=== PATIENT | female | born 1955 | race Caucasian/White ===

== ENCOUNTER 2017-05-09 15:20 | Emergency (ER) | payer MEDICARE, SELFPAY ==
[2017-05-09 15:58] LABS: #Basophils 0.1 thou/uL (0.0-0.2); #Eosinphils 0.3 thou/uL (0.0-0.7); #Lymphocytes 1.5 thou/uL (1.20-3.40); #Monocytes 1.5 thou/uL (0.11-0.59); #Neutrophils 6.7 thou/uL (1.40-6.50); %Basophils 0.6 % (0.0-1.0); %Eosinophils 2.9 % (0.0-10.0); %Lymphocytes 14.7 % (21.0-51.0); %Monocytes 14.5 % (0.0-10.0); %Neutrophils 67.2 % (42.0-75.0); Hemoglobin 11.6 g/dL (12.0-16.0); Mean Corpuscular HGB CONC 32.4 g/dL (32.0-36.0); Mean Corpuscular Volume 95.5 fl (81.0-99.0); Mean Platelet Volume 7.2 fL (7.4-10.4); Platelet Count 316 thou/uL (130-400); RBC Distribution Width 12.1 % (11.5-14.5); Red Blood Cell (RBC) Count 3.76 mill/uL (4.20-5.40)
[2017-05-09 16:28] LABS: ALT (SGPT) 24 U/L (8-55); AST (SGOT) 19 U/L (5-34); Alkaline Phosphatase 88 U/L (40-150); Anion Gap 11 mmol/L (10-20); BUN (Urea Nitrogen) 19 mg/dL (9.8-20.1); Bilirubin, Total 0.4 mg/dL (0.2-1.2); Calc. Creatinine Clearance 0 mL/min (70-130); Calcium 9.2 mg/dL (7.8-10.44); Carbon Dioxide 28 mmol/L (22-29); Chloride 102 mmol/L (98-107); Estimated GFR-MDRD 63; Globulin 3.4 g/dL (2.4-3.5); Glucose 105 mg/dL (70-105); Potassium 4.2 mmol/L (3.5-5.1); Protein, Total 7.4 g/dL (6.0-8.3); Sodium 137 mmol/L (136-145)
--- NOTE | 2017-05-09 16:56 | RAD ---
PA AND LATERAL CHEST: 05/09/17 HISTORY: Shortness of breath and cough. COMPARISON: 09/03/11 study. The heart size is within normal limits. There is a left mid lung field infiltrate probably within the superior segment of the left lower lobe. Underlying mass is not totally excluded. For this reason, f ollowup to resolution would be recommended. IMPRESSION: Left mid lung field pneumonic infiltrate. POS: [facility]
[2017-05-09] MEDS ORDERED: Azithromycin 250 MG TAB ONE (18:26)
[2017-05-09] MEDS ORDERED: cefTRIAXone\\ROCEPHIN 2 GM in Sodium Chloride 0.9% 100 ML IVPB SCH (18:30)
[2017-05-09] MEDS ORDERED: Acetaminophen 500 MG TAB ONE (18:35)
[2017-05-09 18:36] LABS: CKMB 2.2 ng/mL (0-6.6); Troponin I Less than 0.010 ng/mL (< 0.028)
--- NOTE | 2017-06-06 17:33 | EKG ---
Test Reason : SOB/CONGESTION Blood Pressure : / mmHG Vent. Rate : 087 BPM Atrial Rate : 087 BPM P-R Int : 174 ms QRS Dur : 084 ms QT Int : 378 ms P-R-T Axes : 049 041 043 degrees QTc Int : 454 ms Normal sinus rhythm Normal ECG Confirmed by MEEK SAUCEDO, LYRIC ([id number]), marketing editor NDAIA CEJA ([id number]) on 06/06/2017 5:33:10 PM Referred By: Confirmed By:LYRIC EDEN MD
== END 2017-05-09 20:44 | disposition home or self-care (01) ==
LOC: ERS 15:20
DX: J18.9 Pneumonia, unspecified organism (principal); E78.5 Hyperlipidemia, unspecified; I10 Essential (primary) hypertension; M19.90 Unspecified osteoarthritis, unspecified site; F32.9 Major depressive disorder, single episode, unspecified
CPT/HCPCS: 36415; 71046; 80053; 82550; 82553; 84484; 85025; 87040; 87149; 93005; 94640; 96361; 96365; J0696; J7050; J7620

== ENCOUNTER 2017-05-13 11:30 | Emergency (ER) | payer MEDICARE ==
[2017-05-13 12:08] LABS: #Basophils 0.1 thou/uL (0.0-0.2); #Eosinphils 0.4 thou/uL (0.0-0.7); #Lymphocytes 1.2 thou/uL (1.20-3.40); #Monocytes 0.7 thou/uL (0.11-0.59); #Neutrophils 6.8 thou/uL (1.40-6.50); %Basophils 0.6 % (0.0-1.0); %Eosinophils 3.9 % (0.0-10.0); %Lymphocytes 13.2 % (21.0-51.0); %Monocytes 7.3 % (0.0-10.0); Hemoglobin 10.7 g/dL (12.0-16.0); Mean Corpuscular HGB CONC 31.7 g/dL (32.0-36.0); Mean Corpuscular Volume 94.6 fl (81.0-99.0); Mean Platelet Volume 6.7 fL (7.4-10.4); Platelet Count 421 thou/uL (130-400); RBC Distribution Width 12.3 % (11.5-14.5); Red Blood Cell (RBC) Count 3.58 mill/uL (4.20-5.40); White Blood Cell (WBC) Count 9.1 thou/uL (4.8-10.8)
[2017-05-13 12:28] LABS: ALT (SGPT) 28 U/L (8-55); AST (SGOT) 20 U/L (5-34); Albumin 3.6 g/dL (3.5-5.0); Alkaline Phosphatase 103 U/L (40-150); Anion Gap 12 mmol/L (10-20); BUN (Urea Nitrogen) 15 mg/dL (9.8-20.1); Bilirubin, Total 0.2 mg/dL (0.2-1.2); Calc. Creatinine Clearance 0 mL/min (70-130); Calcium 9.6 mg/dL (7.8-10.44); Carbon Dioxide 27 mmol/L (22-29); Chloride 103 mmol/L (98-107); Estimated GFR-MDRD 66; Globulin 3.4 g/dL (2.4-3.5); Glucose 164 mg/dL (70-105); Sodium 138 mmol/L (136-145)
== END 2017-05-13 12:31 | disposition home or self-care (01) ==
LOC: ERS 11:30
DX: J18.9 Pneumonia, unspecified organism (principal); E78.5 Hyperlipidemia, unspecified; F32.9 Major depressive disorder, single episode, unspecified; I10 Essential (primary) hypertension; M19.90 Unspecified osteoarthritis, unspecified site
CPT/HCPCS: 36415; 80053; 85025; 99283

== ENCOUNTER 2017-10-02 10:08 | Outpatient (CLI) | payer MEDICARE ==
--- NOTE | 2017-10-02 11:49 | CT ---
CT CHEST NONCONTRAST PULMONARY LUNG SCAN LOW DOSE: History: Tobacco abuse. FINDINGS: Lungs are hyperinflated. Multinodular infiltrate with masses measuring up to 1.2 cm are present withi n the left lower lobe. Bulky mass like adenopathy of the mediastinum measures up to 4.8 cm oblique di ameter at the subcarinal level and 5.7 cm at the prevascular level. Lack of contrast limits evaluatio n and detail of the mediastinum. There is narrowing of the left lung bronchi and a right mainstem bro nchus due to adenopathy. Enlarged axillary lymph nodes measure up to 2.4 cm on the left. Inferior most images show subtle areas of decreased density within the liver, worrisome for hepatic m asses. IMPRESSION: 1. Extensive bulky and mediastinal adenopathy with bilateral axillary adenopathy and left lower lobe lung masses. Lung RADS category 4B. Suspicious. 2. Probable liver masses. 3. Please consider dedicated CT chest, abdomen, and pelvis with contrast for better delineation and e valuation of abdominal/pelvic abnormalities. Findings were called to Dr. Sanders at 1130 hours. Code CR POS: [facility]
== END 2017-10-02 10:09 | disposition home or self-care (01) ==
LOC: CT 10:08
PROVIDERS: ATTEND Family Medicine
DX: F17.211 Nicotine dependence, cigarettes, in remission (principal); R59.0 Localized enlarged lymph nodes; R16.0 Hepatomegaly, not elsewhere classified
CPT/HCPCS: G0297

== ENCOUNTER 2017-11-21 13:35 | Emergency (ER) | payer MEDICARE ==
[2017-11-21] MEDS ORDERED: ISOVUE-370 76%-LOCM 1 ML ONE (13:42)
[2017-11-21] MEDS ORDERED: Ondansetron ODT 4 MG TAB ONE (14:13)
[2017-11-21] MEDS ORDERED: Methocarbamol 1 GM in Sodium Chloride 0.9% 100 ML IVPB SCH (14:30)
[2017-11-21 14:39] LABS: #Eosinphils 0.1 thou/uL (0.0-0.7); #Lymphocytes 0.9 thou/uL (1.20-3.40); #Monocytes 0.7 thou/uL (0.11-0.59); #Neutrophils 5.7 thou/uL (1.40-6.50); %Basophils 0.4 % (0.0-1.0); %Eosinophils 0.9 % (0.0-10.0); %Monocytes 9.9 % (0.0-10.0); %Neutrophils 76.8 % (42.0-75.0); Hemoglobin 10.4 g/dL (12.0-16.0); Mean Corpuscular HGB CONC 33.6 g/dL (32.0-36.0); Mean Corpuscular Hemoglobin 28.9 pg (27.0-31.0); Mean Corpuscular Volume 86.1 fL (78.0-98.0); Platelet Count 284 thou/uL (130-400); RBC Distribution Width 13.2 % (11.5-14.5); White Blood Cell (WBC) Count 7.5 thou/uL (4.8-10.8)
[2017-11-21 14:59] LABS: ALT (SGPT) 34 U/L (8-55); AST (SGOT) 60 U/L (5-34); Albumin 4.4 g/dL (3.4-4.8); Alkaline Phosphatase 192 U/L (40-150); Anion Gap 16 mmol/L (10-20); BUN (Urea Nitrogen) 34 mg/dL (9.8-20.1); Bilirubin, Total 0.4 mg/dL (0.2-1.2); Calc. Creatinine Clearance 0 mL/min (70-130); Calcium 10.2 mg/dL (7.8-10.44); Carbon Dioxide 24 mmol/L (23-31); Chloride 101 mmol/L (98-107); Estimated GFR-MDRD 43; Globulin 4.6 g/dL (2.4-3.5); Glucose 114 mg/dL (80-115); Potassium 4.4 mmol/L (3.5-5.1); Sodium 137 mmol/L (136-145)
[2017-11-21 15:04] LABS: CKMB 1.7 ng/mL (0-6.6); Troponin I Less than 0.010 ng/mL (< 0.028)
--- NOTE | 2017-11-21 15:55 | CT ---
CT PULMONARY ANGIO OF CHEST WITH CONTRAST: 11/21/17 Multiple axial tomograms obtained through chest with IV enhancement following pulmonary angio protoco l with multiplanar reconstruction and 3D postprocessing. INDICATIONS: Cough. Back pain. History of malignancy. Correlation made to recent CT lung screening exam of 10/02/17 which revealed massive mediastinal adenop athy. FINDINGS: Current exam again shows massive mediastinal adenopathy. Large confluent adenopathy in the anterior m ediastinum surround the arch vessels. This bulky adenopathy encompasses the aortic arch. There is pro minent paratracheal, carinal and subcarinal adenopathy. The adenopathy compresses the left main pulmonary artery producing significant luminal narrowing of t he vessels to the left mid and lower lung. The left main descending pulmonary arteries show significa nt luminal compression. There is also compression of left upper lobe pulmonary artery. No definite pu lmonary embolus identified. The right main pulmonary artery is displaced due to posterior adenopathy displacing this artery anter iorly; however, no evidence of embolus identified. The lung ramirez are well aerated. There is a focal pleural based density consistent with pulmonary ma ss in the posterior mid left lung in a paravertebral location which measures approximately 2.9 cm bharat gth x 1.2 cm AP dimension. There are two small pulmonary nodules in the left lower lobe peripherally measuring in the 3 to 4 mm range. There is associated focus of pleural thickening at this location. There is a calcified nodule in the right lower lobe mid lung adjacent to the fissure. No significant effusion. No evidence of inflammatory infiltrate. Images through the upper abdomen show numerous low density lesions throughout the liver indicating di ffuse hepatic metastasis and evidence of upper abdominal adenopathy, incompletely evaluated. Review of the osseous structures reveals evidence of numerous old rib fractures. The osseous structur es show abnormal sclerosis and some abnormal mottled density in the vertebral bodies. Diffuse bony me tastasis cannot be excluded. IMPRESSION: 1. Massive mediastinal and hilar adenopathy. This adenopathy compresses and displaces both main pulmonary arteries with significant luminal narrowing in the left main pulmonary artery due to the dumont rrounding adenopathy. No definite pulmonary embolus identified. 2. There is a pleural based mass density in the mid left lung posteriorly at a paravertebral loc ation as described above and there are tiny nodules in the left lower lobe. 3. Images through the upper abdomen reveal numerous low density lesions in the liver indicating diffuse hepatic metastasis. There is also evidence of adenopathy in the upper abdomen which is incomp letely evaluated. POS: [facility]
--- NOTE | 2017-11-25 13:46 | EKG ---
Test Reason : Blood Pressure : / mmHG Vent. Rate : 092 BPM Atrial Rate : 092 BPM P-R Int : 186 ms QRS Dur : 086 ms QT Int : 350 ms P-R-T Axes : 076 043 051 degrees QTc Int : 432 ms Normal sinus rhythm Low voltage QRS Borderline ECG Confirmed by MEEK SAUCEDO, LYRIC ([id number]), development editor NADIA CEJA ([id number]) on 11/25/2017 1:45:29 PM Referred By: Confirmed By:LYRIC EDEN MD
== END 2017-11-21 16:53 | disposition home or self-care (01) ==
LOC: ERS 13:35
DX: M54.6 Pain in thoracic spine (principal); C78.00 Secondary malignant neoplasm of unspecified lung; C22.8 Malignant neoplasm of liver, primary, unspecified as to type; E78.5 Hyperlipidemia, unspecified; I10 Essential (primary) hypertension; M19.90 Unspecified osteoarthritis, unspecified site; F32.9 Major depressive disorder, single episode, unspecified; Z79.899 Other long term (current) drug therapy
CPT/HCPCS: 71275; 80053; 82553; 84484; 85025; 93005; 96365; 96375; J2270; J2800; J7050; Q0162

== ENCOUNTER 2017-11-22 13:47 | Emergency (ER) | payer MEDICARE ==
[2017-11-22] MEDS ORDERED: Ondansetron ODT 4 MG TAB ONE (15:06)
[2017-11-22] MEDS ORDERED: HYDROcodone/Acetaminophen 5/325 mg Tablet ONE (15:33)
== END 2017-11-22 16:20 | disposition home or self-care (01) ==
LOC: ERS 13:47
DX: M54.6 Pain in thoracic spine (principal); E78.5 Hyperlipidemia, unspecified; I10 Essential (primary) hypertension; F32.9 Major depressive disorder, single episode, unspecified; Z79.899 Other long term (current) drug therapy
CPT/HCPCS: J2270; Q0162

== ENCOUNTER 2017-11-22 21:27 | Emergency (ER) | payer MEDICARE ==
[2017-11-23] MEDS ORDERED: Ondansetron ODT 4 MG TAB ONE (00:18)
== END 2017-11-23 00:20 | disposition home or self-care (01) ==
LOC: ERS 21:27
DX: G89.29 Other chronic pain (principal); E78.5 Hyperlipidemia, unspecified; I10 Essential (primary) hypertension; M19.90 Unspecified osteoarthritis, unspecified site; F32.9 Major depressive disorder, single episode, unspecified; Z79.899 Other long term (current) drug therapy; Z79.891 Long term (current) use of opiate analgesic
CPT/HCPCS: 96372; 99283; J2270; Q0162

== ENCOUNTER 2017-11-23 10:12 | Emergency (ER) | payer MEDICARE ==
[2017-11-23] MEDS ORDERED: Ondansetron ODT 4 MG TAB ONE (12:26)
[2017-11-23] MEDS ORDERED: Acetaminophen 500 MG TAB ONE (12:26)
== END 2017-11-23 12:43 | disposition home or self-care (01) ==
LOC: ERS 10:12
DX: M54.6 Pain in thoracic spine (principal); E78.5 Hyperlipidemia, unspecified; I10 Essential (primary) hypertension; F32.9 Major depressive disorder, single episode, unspecified
CPT/HCPCS: Q0162

== ENCOUNTER 2017-11-23 22:38 | Emergency (ER) | payer MEDICARE ==
[2017-11-23] MEDS ORDERED: Acetaminophen 500 MG TAB ONE (23:55)
== END 2017-11-24 00:04 | disposition home or self-care (01) ==
LOC: ERS 22:38
DX: G89.29 Other chronic pain (principal); M54.6 Pain in thoracic spine; E78.5 Hyperlipidemia, unspecified; I10 Essential (primary) hypertension; F32.9 Major depressive disorder, single episode, unspecified; Z79.899 Other long term (current) drug therapy
CPT/HCPCS: 99283; Q0162

== ENCOUNTER 2017-12-09 12:45 | Inpatient (IN) | payer MEDICARE ==
[~2017-12-09 12:45] MED LIST: ISOVUE-370 76%-LOCM 1 ML ONE
[2017-12-09 13:20] LABS: #Eosinphils 0.1 thou/uL (0.0-0.7); #Lymphocytes 0.9 thou/uL (1.20-3.40); #Monocytes 0.8 thou/uL (0.11-0.59); #Neutrophils 7.2 thou/uL (1.40-6.50); %Basophils 0.4 % (0.0-1.0); %Eosinophils 1.4 % (0.0-10.0); %Lymphocytes 10.2 % (21.0-51.0); %Monocytes 8.7 % (0.0-10.0); %Neutrophils 79.3 % (42.0-75.0); Hemoglobin 11.7 g/dL (12.0-16.0); Mean Corpuscular HGB CONC 32.2 g/dL (32.0-36.0); Mean Corpuscular Volume 87.1 fL (78.0-98.0); Mean Platelet Volume 7.6 fL (7.4-10.4); Platelet Count 274 thou/uL (130-400); RBC Distribution Width 14.2 % (11.5-14.5); Red Blood Cell (RBC) Count 4.16 mill/uL (4.20-5.40); White Blood Cell (WBC) Count 9.1 thou/uL (4.8-10.8)
--- NOTE | 2017-12-09 13:26 | RAD ---
PORTABLE AP CHEST: Date: 12/09/17 HISTORY: Patient fell yesterday and now has bilateral rib pain/chest pain. COMPARISON: 05/09/17. FINDINGS: There is widening of the mediastinum with mass-like density in the left hilar and suprahilar location and the superior aspect of the aortic arch is not delineated. Patient was noted to have mediastinal and hilar masses on recent CTA of the chest on 11/21/17, which likely accounts for this finding. Ther e are a few remote anterior left-sided rib fractures noted. No definite acute rib fracture is appreci ated on this exam. There is no pneumothorax or pleural effusion seen. No other findings. IMPRESSION: 1. Widening of the mediastinum with mass-like density in the left hilar and suprahilar locations, li reji related to extensive masses/lymphadenopathy seen in the mediastinum and left hilar region on rec ent CTA chest on 11/21/17. 2. Remote anterior left-sided rib fractures. 3. No acute cardiopulmonary process. POS: [facility]
[2017-12-09 13:44] LABS: ALT (SGPT) 55 U/L (8-55); AST (SGOT) 90 U/L (5-34); Albumin 3.7 g/dL (3.4-4.8); Alkaline Phosphatase 313 U/L (40-150); Anion Gap 20 mmol/L (10-20); BUN (Urea Nitrogen) 19 mg/dL (9.8-20.1); Bilirubin, Total 0.7 mg/dL (0.2-1.2); Calc. Creatinine Clearance 0 mL/min (70-130); Calcium 9.1 mg/dL (7.8-10.44); Carbon Dioxide 17 mmol/L (23-31); Chloride 93 mmol/L (98-107); Estimated GFR-MDRD 63; Globulin 3.3 g/dL (2.4-3.5); Glucose 114 mg/dL (80-115); Sodium 126 mmol/L (136-145)
[2017-12-09 13:48] LABS: CKMB 3.2 ng/mL (0-6.6); Troponin I Less than 0.010 ng/mL (< 0.028)
[2017-12-09] MEDS ORDERED: Sodium Chloride 0.9% 1,000 ML IV SCH (16:40)
[2017-12-09] MEDS ORDERED: Acetaminophen 325 MG TAB PO PRN ×2 (16:40→19:07)
[2017-12-09] MEDS ORDERED: Ondansetron HCl/PF 4 MG/2 ML Vial IVP PRN ×2 (16:40→19:07)
[2017-12-09] MEDS ORDERED: Ondansetron ODT 4 MG TAB SL PRN (16:40)
[2017-12-09] MEDS ORDERED: Nystatin Cream 30 GM TUBE TOP PRN (17:01)
--- NOTE | 2017-12-09 17:10 | PDOC.EVN ---
Event Note - Event Note Event Note: Seen and examined. S/p fall but cannot tell me many of the events or where she fell. She is complaining of "pain all over" that has been going on for some time. Denies f/c/n/v. Denies numbness, tingling, weakness, but I was unable to complete an entire interview because she did not wish to proceed with further questions. NAD, resting in bed No icterus or injection RRR s m/g/r, her chest is TTP by my stethoscope diffusely CTAB s w/r/r Abd soft with some voluntary guarding and she yells no matter where I palpate, including areas away from the abdomen Scant pitting edema BLE CN II-XII intact and symmetric, no focal deficits Large mediastinal mass; multiple liver metastases on liver from previous scan A/P: Hyponatremia -normal 2 weeks ago -tsh, cortisol, urine lytes -s/p 500 ml bolus and would hold IVF as suspect SIADH -BMP q4h, more often if rapid rise, goal < 9 mEq/24h Pain -morphine PRN -I do not believe she has an acute abdomen currently, but will plan for serial abdominal exam Lung mass with likely metastases, elevated LFTs and alk phos -onc consulted, as well as palliative Anemia -monitor for stability DVT ppx with ICDs and possibly with lovenox pending above consultations
--- NOTE | 2017-12-09 17:24 | HP-2 ---
DATE OF SERVICE: 12/09/2017 CODE STATUS: FULL. PRIMARY CARE PHYSICIAN: Paco Sanders M.D. RESIDENT: Jose Carlos Bae M.D. ATTENDING PHYSICIAN: Milan Cunningham MD CONSULTATIONS: 1. Palliative Care. 2. Dr. Fajardo, Hematology/Oncology. CHIEF COMPLAINT: Rib pain. HISTORY OF PRESENT ILLNESS: Ms. Mills is a pleasant 62-year-old female with past medical history of carotid artery stenosis, hypertension, osteoarthritis, and a recently diagnosed presumed lung cancer. She presents to the ER via EMS with chief complaint of left-sided rib pain, back pain, arm pain , and abdominal pain. She states that she was walking at home yesterday and fell from standing, landing on her left side. She states she required assistance from EMS to stand back up and that her pain has been significantly worse throughout the past 24 hours. States that she has had more and more difficulty caring herself over the past 2-3 months. When asked regarding her lung cancer, she states that she is aware that she has a lung mass, but has been unable to follow up with Oncology due to financial restrictions. While en route with EMS, she received fentanyl 200 mcg and has been very tired and minimally responsive per nursing report. Her history and review of systems were limited by this. ER COURSE: While in the ER, the patient was seen and evaluated by Jacquelin Lizarraga PA-C. Routine labs were drawn and a chest x-ray was obtained. She was given a normal saline bolus of 500 mL PAST MEDICAL HISTORY: Past medical history was obtained from clinic records and is as follows: 1. Known lung cancer of unspecified type. 2. Hypertension. 3. Colon polyps. 4. History of tobacco abuse. 5. Osteoarthritis. 6. Hyperlipidemia. 7. Hypertension. 8. Fibromyalgia. 9. Depression. 10. Posttraumatic stress disorder. PAST SURGICAL HISTORY: 1. Left knee arthroscopy. 2. Hysterectomy. 3. Colonoscopy. ALLERGIES: The patient states she is allergic to ASPIRIN. MEDICATIONS: 1. Spiriva inhaler, inhale 1 capsule daily. 2. Lovastatin 40 mg daily. 3. Lyrica 1 tab by mouth t.i.d. 4. Nabumetone 750 mg b.i.d. 5. Flonase 1 spray each nostril twice daily. 6. Zoloft 200 mg daily. 7. Ranitidine 150 mg twice daily. 8. Lisinopril 5 mg daily. 9. Alendronate 70 mg by mouth weekly. 10. Bupropion HCL ER 150 mg daily. 11. Amitriptyline 70 mg at bedtime. 12. Tramadol 50 mg t.i.d. p.r.n. pain. SOCIAL HISTORY: The patient endorses extensive smoking history, but was unable to comment on how long. Per clinic records, she has a greater than 15-pack- year history. Denies alcohol or illicit drug use, is currently living at home, but is having difficulty performing ADLs and IADLs. REVIEW OF SYSTEMS: Review of systems is limited by patient's altered mentation from the pain medication. She did endorse abdominal pain, back pain, arm pain, and rib pain. She was unwilling to provide further review of systems. PHYSICAL EXAMINATION: VITAL SIGNS: Blood pressure 111/79, pulse 105, respiratory rate 16, temperature 98.7 oral, oxygen saturation 95% on room air, current weight 68 kilograms. GENERAL: A cachectic appearing, in moderate to severe pain, responds to verbal stimuli. Unable to assess orientation due to patient's altered mentation. HEENT: Normocephalic, atraumatic. PERRLA, EOMI. Conjunctivae within normal limits. External ears, nose grossly normal. Moist oral examination. Mouth reveals poor dentition, moist mucous membranes. NECK: Supple, without lymphadenopathy, thyromegaly. CARDIOVASCULAR: Tachycardic rate, regular rhythm, no murmurs, rubs or gallops. LUNGS: Clear to auscultation bilaterally. Normal effort. ABDOMEN: Mild distention with diffuse out of proportion tenderness. Normal bowel sounds. No rebound or guarding noted. EXTREMITIES: No clubbing, cyanosis or edema. MUSCULOSKELETAL: Moves all 4 limbs equally. Range of motion limited to pain. NEUROLOGIC: No gross focal deficits. Strength limited by pain in all major muscle groups. SKIN: Warm, dry, and intact without lesions. PSYCHIATRIC: Unable to assess due to pain medication. LABORATORY DATA: CBC: White blood cell count 9.1, hemoglobin 10.7, hematocrit 36.2, platelets 274, neutrophils 79.2. CMP: Sodium 129, potassium 4.0, chloride 93, bicarbonate 17, BUN 19, creatinine 0.91, GFR 63, glucose 114, calcium 9.1, total bilirubin 0.7, AST 90, ALT 55, alkaline phosphatase 313. Serum protein 7.0, albumin 3.7, globulin 3.3. Cardiac markers, CK-MB 3.2, troponin I less than 0.010. IMAGING: Chest x-ray reveals widening of the mediastinal mass-like density in the left hilar and suprahilar locations, likely related extensive masses/ lymphadenopathy seen in the left mediastinum and left hilar region on recent CTA chest on 11/21/2017. CTA chest on 11/21/2017 shows mass in mediastinal and hilar adenopathy. Significant luminal narrowing of the left main pulmonary artery due to surrounding adenopathy, pleural based mass density in the left lung posteriorly in paravertebral location. Images through upper abdomen revealed numerous low density lesions in the liver, indicating diffuse hepatic metastasis. EKG: Sinus rhythm with premature atrial contractions, ventricular rate 80, NJ interval 180, QTC interval 468. ASSESSMENT AND PLAN: Ms. Mills is a 62-year-old female with suspected metastatic lung disease. She presents after a fall with intractable rib, back, and arm pain. She was found to be hyponatremic down to 126, which is decreased from 137 on 11/21/2017. 1. Suspected syndrome of inappropriate antidiuretic hormone secretion due to metastatic lung cancer. Patient received a 500 mL bolus of normal saline in the ER. We will continue to trend basic metabolic panels q.4h x4. We will fluid restrict to 1200 mL fluid daily. We will consider consulting Nephrology if her hyponatremia worsens. We will also check a TSH and random cortisol level. 2. Suspected metastatic lung cancer. We will obtain a CT of the abdomen and pelvis with IV contrast to further evaluate suspected liver metastasis and search for other potential tumors. Hematology/Oncology have been consulted as has palliative care. We will provide [place] and for pain control with morphine 2 mg q.4h. p.r.n. for breakthrough pain. Tumor markers of an alpha fetoprotein CA-19/9, CEA and CA-125 have all been drawn. We will await further recommendations from, Hematology/Oncology. 3. Hypertension. We will resume home medications. 4. Depression. We will resume home medication. 5. Tobacco abuse, p.r.n. nicotine patch provided. 6. Prophylaxis, Lovenox. Patient is high risk for DVT given suspected metastatic disease. 7. Fall precautions. 8. Diet: Heart healthy, fluid restricted to 1200 mL of fluid daily. CODE STATUS: FULL. Code status was discussed with patient who expressed understanding. DISPOSITION AND ESTIMATED LENGTH OF STAY: She is admitted under inpatient status and placed on the oncology wing. Length of stay is likely greater than 2 midnights. History and physical exam and management of this patient were discussed with Dr. Jones who is in agreement unless otherwise stated in his addendum. [facility]
[2017-12-09] MEDS ORDERED: Acetaminophen 650 MG Suppository PR PRN (19:07)
[2017-12-09] MEDS ORDERED: Ondansetron ODT 4 MG TAB PO PRN (19:07)
[2017-12-09] MEDS ORDERED: Bisacodyl 5 MG TAB PO PRN (19:07)
[2017-12-09] MEDS ORDERED: Nicotine 14 MG PATCH TD PRN (19:07)
[2017-12-09] MEDS ORDERED: Bisacodyl 10 MG SUPP PR PRN (19:07)
[2017-12-09] MEDS ORDERED: HYDROcodone/Acetaminophen 10/325 mg Tablet PO PRN (19:07)
[2017-12-09] MEDS ORDERED: Sodium Chloride 0.9% 10 ML ONE (19:09)
[2017-12-09] MEDS ORDERED: Enoxaparin Sodium 40 MG/0.4 ML SYRINGE SC SCH (19:15)
[2017-12-09 19:38] VITALS: BMI 25.7
[2017-12-09 20:44] LABS: Anion Gap 16 mmol/L (10-20); BUN (Urea Nitrogen) 21 mg/dL (9.8-20.1); Calc. Creatinine Clearance 72 mL/min (70-130); Calcium 8.9 mg/dL (7.8-10.44); Carbon Dioxide 22 mmol/L (23-31); Chloride 92 mmol/L (98-107); Estimated GFR-MDRD 65; Glucose 98 mg/dL (80-115); Potassium 3.8 mmol/L (3.5-5.1); Sodium 126 mmol/L (136-145)
[2017-12-09 20:59] LABS: CEA, Serum 94.25 ng/mL (< or = 5.0); Thyroid Stimulating Hormone 3.6965 uIU/mL (0.35-4.94)
--- NOTE | 2017-12-09 21:00 | CT ---
CT OF THE CHEST WITH CONTRAST CT OF THE ABDOMEN AND PELVIS WITH CONTRAST 12/09/17 COMPARISON: 11/21/17. HISTORY: Lung mass and massive mediastinal adenopathy. TECHNIQUE: 1. Multiple contiguous axial images are obtained in a CT of the chest with contrast. Coronal ref ormats were performed. 2. Multiple contiguous axial images were obtained in a CT of the abdomen and pelvis with contras t. Coronal reformats were performed. FINDINGS: There is a lobulated low density soft tissue density mass involving the left hilar region. This encas es the pulmonary artery and bronchi to the left lower lobe. This is stable in size compared to the pr ior examination and becomes confluent with masses posterior mediastinal adenopathy. There are also en larged confluent lymph nodes in the superior and anterior mediastinum. These appear similar in size c ompared to the prior examination. There is a stable hypodense mass along the posterior pleura measuring approximately 3.0 cm in length. No new pulmonary masses are seen. No pleural effusion or pneumothorax are present. There is stable bilateral axillary adenopathy. The largest node is seen on the right measuring 2.8 cm in greatest dimension. The chest wall soft tissues and bones of the thorax are otherwise unremarkabl e. CT ABDOMEN/PELVIS: There are innumerable hypodensities scattered throughout the majority of the liver encompassing the m ajority of the liver parenchyma. The largest measures 7.3 cm in greatest dimension. When compared to the prior examination, the liver masses appear larger and more numerable than on the prior examinatio n. A small amount of free fluid in seen in the pelvis. No free air is identified. The gallbladder is contracted. The kidneys, adrenal glands, spleen, and pancreas are unremarkable. Scattered diverticula are seen in the colon. The small bowel is normal in caliber. The appendix is un remarkable. No abdominal or pelvic adenopathy is seen. No enlarged inguinal lymph nodes are present. The patient is status post hysterectomy. There is a small fat containing umbilical hernia. Degenerative changes are seen in the spine. There i s a slightly mottled appearance to some of the vertebral bodies which most likely represents degenera tive change. Osseous metastases cannot be entirely excluded. This is unchanged compared to the prior examination. IMPRESSION: 1. Stable peripheral left lung mass. 2. Massive hilar and mediastinal adenopathy is grossly stable compared to the prior examination. 3. Stable bilateral axillary adenopathy. 4. Scattered hypodensities throughout the liver appear to have progressed and likely represent m etastatic disease. 5. Diverticulosis. 6. Stable sclerotic appearance to some of the vertebral bodies may represent degenerative change . Osseous metastases cannot be entirely excluded. POS: [facility]
--- NOTE | 2017-12-09 21:59 | CON ---
DATE OF CONSULTATION: 12/09/2017 REASON FOR CONSULTATION: Lung mass and mediastinal lymphadenopathy. HISTORY OF PRESENT ILLNESS: A 62-year-old female with known lung mass with massive mediastinal lymphadenopathy and liver lesions seen on previous CAT scans presents with a fall and pain. On exam, the patient is noncooperative and minimally verbal. She states she has pain all over. She says she was told she had a lung mass, but says she was never able to get this evaluated as she could not afford it. She is not able to give me any other history. Patient was not responsive to other questions and did not want to proceed any further with the interview. REVIEW OF SYSTEMS: Unable to obtain secondary to patient's status and refusal. PAST MEDICAL HISTORY: Unable to obtain. FAMILY HISTORY: Unable to obtain. SOCIAL HISTORY: Unable to obtain. MEDICATIONS: Reviewed. PHYSICAL EXAMINATION: GENERAL: The patient is lying in bed, very uncomfortable appearing and moaning in pain. CARDIOVASCULAR: Regular rhythm and rate with some mild tenderness to palpation upon touching anywhere on her chest. RESPIRATORY: Clear to auscultation bilaterally without wheezes, rales or rhonchi. ABDOMEN: Soft and nondistended. EXTREMITIES: No edema. NEUROLOGIC: No gross abnormal findings; however, not able to perform full exam once patient not cooperative for lymph node exam. LABORATORY DATA: White blood cells 9.1, hemoglobin 11.7, hematocrit 36.2, platelets 274. Sodium 126. AST 90, ALT 55, alkaline phosphatase 313, albumin 3.7. IMAGING DATA: CT angio of chest with and without contrast dated 11/21/2017, massive mediastinal adenopathy. Large confluent adenopathy in the anterior mediastinum surrounding the arch vessels. This bulky adenopathy encompasses the aortic arch. There is prominent paratracheal coronal and subcarinal adenopathy. The adenopathy compresses the left main pulmonary artery, producing significant luminal narrowing of the vessels to the left mid and lower lung. The left main descending pulmonary artery shows significant luminal compression. There is also compression of left upper lobe pulmonary artery. Right main pulmonary artery is displaced due to posterior adenopathy displacing this artery anteriorly. There is a focal pleural based density consistent with pulmonary mass in the posterior mid left lung in a paravertebral location, which measures 2.9 cm x 1.2 cm in AP dimension. There were 2 small pulmonary nodules in the left lower lobe peripherally measuring 3- 4 mm in size with associated pleural thickening at that location. Images through the upper abdomen showed numerous low density lesions throughout the liver, indicating diffuse hepatic metastases, and evidence of upper abdominal adenopathy and completely evaluated. Review of osseous structures reveals evidence of numerous old rib fractures. The osseous structures showed normal sclerosis and some abnormal mottled density into the vertebral bodies. Diffuse bony metastasis cannot be excluded. ASSESSMENT AND PLAN: A 62-year-old female with lung mass, massive mediastinal lymphadenopathy, diffuse liver lesions, and possible bone mets presenting with severe pain after a fall. History is limited by the patient's condition. The patient has known history of lymphadenopathy and lung mass first seen in 09/[address] scan; however, the patient did not follow up to have this evaluated. This was again seen on 11/21/[address] angio of the chest and again the patient did not follow up. Unable to get any other history from the patient. Patient also has hyponatremia with sodium of 126. Sodium was 137 on 11/21/2017, so this is a new finding. Given burden of disease on imaging and hyponatremia, this is concerning for a small cell lung cancer and SIADH that is the cause of her hyponatremia. The patient does require biopsy of tissue for definitive diagnosis; however. We will get a CT scan of the chest , abdomen, and pelvis as she has never had an abdomen and pelvis CT and her CT of the chest is 3 weeks old and small cell can grow very rapidly and she may have much higher burden of disease than previously thought. We will then decide if she should have a biopsy via IR or through a bronchoscopy. If this does pillowcase turner to be small cell lung cancer, she may benefit from inpatient chemotherapy. Thank you for this consult. We will follow. [facility]
[2017-12-09] MEDS ORDERED: Nystatin Powder 15 GM BOT TOP PRN (23:07)
[2017-12-09] MEDS: Ipratropium Bromide 2.5 ml Neb NEB SCH (23:32)
[2017-12-09] MEDS: Atorvastatin Calcium 40 MG TAB PO SCH (23:42)
[2017-12-09] MEDS: Famotidine 20 MG TAB PO SCH (23:42)
[2017-12-09] MEDS: Pregabalin 50 MG CAP PO SCH (23:42)
[2017-12-10 01:38] LABS: Anion Gap 15 mmol/L (10-20); BUN (Urea Nitrogen) 18 mg/dL (9.8-20.1); Calc. Creatinine Clearance 78 mL/min (70-130); Calcium 9.1 mg/dL (7.8-10.44); Carbon Dioxide 22 mmol/L (23-31); Chloride 93 mmol/L (98-107); Estimated GFR-MDRD 72; Glucose 107 mg/dL (80-115); Sodium 126 mmol/L (136-145)
[2017-12-10 06:17] LABS: Anion Gap 16 mmol/L (10-20); BUN (Urea Nitrogen) 16 mg/dL (9.8-20.1); Calc. Creatinine Clearance 78 mL/min (70-130); Carbon Dioxide 21 mmol/L (23-31); Chloride 94 mmol/L (98-107); Estimated GFR-MDRD 72; Glucose 93 mg/dL (80-115); Sodium 127 mmol/L (136-145)
--- NOTE | 2017-12-10 06:22 | PDOC.FM ---
- Subjective Subjective: Pt complains of neck/shoulder stiffness and soreness, rt sided chest pain, abdominal pain ("My belly has hurt for a while"), calf pain. She says her pain has improved from admission. Patient is depressed about her illness. - Objective Vital Signs & Weight: Vital Signs (12 hours) Temp Pulse Resp BP Pulse Ox 12/10/17 03:54 98.2 F 96 16 120/58 L 92 L 12/09/17 23:34 97.6 F 75 20 130/67 100 12/09/17 23:32 96 16 100 12/09/17 20:00 92 L 12/09/17 19:57 98.9 F 97 20 126/61 91 L Weight Weight 68 kg I&O: 12/08/17 12/09/17 12/10/17 06:59 06:59 06:59 Intake Total 240 Balance 240 Result Diagrams: 12/09/17 13:12 12/10/17 04:49 <Francia Veronica - Last Filed: 12/10/17 08:58> - Objective Vital Signs & Weight: Vital Signs (12 hours) Temp Pulse Resp BP Pulse Ox 12/10/17 08:23 95 12/10/17 07:57 97.7 F 95 24 H 122/59 L 93 L 12/10/17 07:40 99 20 98 12/10/17 03:54 98.2 F 96 16 120/58 L 92 L Weight Admit Weight 68 kg Weight 68 kg I&O: 12/09/17 12/10/17 12/11/17 06:59 06:59 06:59 Intake Total 240 Balance 240 Result Diagrams: 12/09/17 13:12 12/10/17 04:49 <Al Valente - Last Filed: 12/10/17 11:51> Phys Exam - Physical Examination Constitutional: NAD Patient sitting stiffly in bed without moving HEENT: PERRLA, moist MMs, sclera anicteric Neck: no nodes, supple Respiratory: no wheezing, clear to auscultation bilateral Cardiovascular: RRR, no significant murmur Gastrointestinal: soft, no distention, positive bowel sounds Diffusely TTP, Musculoskeletal: no edema, pulses present Not moving in the bed. Patient is hypersensitive to touch, yells when she i is touched anywhere on her body (feet, calves, legs, abdomen) Deviation from normal: Appears depressed <Francia Veronica - Last Filed: 12/10/17 08:58> Dx/Plan (1) Lung cancer Code(s): C34.90 - MALIGNANT NEOPLASM OF UNSP PART OF UNSP BRONCHUS OR LUNG Status: Chronic (2) HTN (hypertension) Code(s): I10 - ESSENTIAL (PRIMARY) HYPERTENSION Status: Chronic (3) Colon polyps Code(s): K63.5 - POLYP OF COLON Status: Chronic (4) Tobacco abuse Code(s): Z72.0 - TOBACCO USE Status: Chronic (5) Osteoarthritis Code(s): M19.90 - UNSPECIFIED OSTEOARTHRITIS, UNSPECIFIED SITE Status: Chronic (6) Hyperlipidemia Code(s): E78.5 - HYPERLIPIDEMIA, UNSPECIFIED Status: Chronic (7) Fibromyalgia Status: Chronic (8) Depression Code(s): F32.9 - MAJOR DEPRESSIVE DISORDER, SINGLE EPISODE, UNSPECIFIED Status : Chronic (9) PTSD (post-traumatic stress disorder) Code(s): F43.10 - POST-TRAUMATIC STRESS DISORDER, UNSPECIFIED Status: Chronic (10) SIADH (syndrome of inappropriate ADH production) Status: Acute (11) Hyponatremia Code(s): E87.1 - HYPO-OSMOLALITY AND HYPONATREMIA Status: Acute - Plan Plan: 62 yo F with suspected metastatic lung disease. Presents after a fall with intractable rib, back, and arm pain. Found to be hyponatremic down to 126, decreased from 137 on 11/21/17. Suspected syndrome SIADH 2/2 metastatic lung cancer -pt received 500 ml of NS in ER. Continue to trend BMP with q4h x4. Fluid restricted to 1200 ml fluid daily. Consider nephrology consult if hyponatremia worsens. -TSH - wnl -Random cortisol level- 36.1 Suspected metastatic lung cancer -CXR- widening mediastinal lung mass -Chest/Abd/Pelv CT: Stable peripheral left lung mass, massive hilar and mediastinal adenopathy grossly table compared to prior exam. Stable bilateral axillaary adenopathy. Scattered hypodensities throughout the liver appear to have progressed, likely represent metastatic disease. Diverticulosis. Stable sclerotic appearance of some of the vertebral bodies may represent degenerative change. Osseous metastasis cannot be entirely excluded. - Hem/Onc consulted, palliative consulted. - Provide [place] for pain control, with morphine 2 mg q4h PRN for breakthrough pain. -AFP, CA 19-9, CA -125 pending -CEA -94.25 (high) -Hem/Onc Dr. 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 Veronica. I agree with the History, Examination, Assessment and Plan documented above with any addition or exceptions noted below. Patient here with worsening pain and new onset hyponatremia that appears related to SIADH. She in on fluid restriction and sodium is stable. Her lung masses are stable. Oncology on board, and we will consult Pulmonology today. She is going for CT guided liver biopsy to evaluate for metastatic disease. Continue pain control as needed. Further workup pending biopsy results and specialist recs. Tumor markers pending. <Al Valente - Last Filed: 12/10/17 11:51>
[2017-12-10] MEDS: Ipratropium Bromide 2.5 ml Neb NEB SCH ×3 (07:40→19:02)
[2017-12-10] MEDS: HYDROcodone/Acetaminophen 10/325 mg Tablet PO PRN ×2 (08:23→16:01)
[2017-12-10] MEDS: Lisinopril 5 MG TAB PO SCH (08:23)
[2017-12-10] MEDS: Famotidine 20 MG TAB PO SCH ×2 (08:23→21:35)
[2017-12-10] MEDS: Pregabalin 50 MG CAP PO SCH ×2 (08:24→21:40)
[2017-12-10] MEDS: Enoxaparin Sodium 40 MG/0.4 ML SYRINGE SC SCH ×2 (08:25→09:12)
[2017-12-10] MEDS: Bupropion 150 MG XL TAB PO SCH (08:25)
[2017-12-10] MEDS ORDERED: Prevnar 13-Val Conj/PF 0.5 ML SYRINGE IM ONE (09:00)
[2017-12-10 09:29] LABS: Alpha-Fetoprotein,Tumor Marker 9.2 ng/mL (0.89-8.78); Cancer Antigen - CA 125 180.6 U/mL (Less than 35)
[2017-12-10 09:42] LABS: INR-International Normal Ratio 1.2; PTT 37.4 SEC (22.9-36.1); Prothrombin Time 15.4 SEC (12.0-14.7)
[2017-12-10] MEDS: Nabumetone 500 MG TAB PO SCH (10:43)
[2017-12-10] MEDS ORDERED: Midazolam HCl 2 mg/2 ml Vial ONE (10:45)
[2017-12-10] MEDS ORDERED: Sodium Bicarbonate 2.5 MEQ/5 ML VIAL ONE (10:45)
[2017-12-10] MEDS ORDERED: Fentanyl 100 MCG/2 ML VIAL ONE (10:45)
--- NOTE | 2017-12-10 12:23 | CT ---
CT GUIDED LIVER BIOPSY: HISTORY: Liver mass. COMPARISON: CT of prior day. FINDINGS: The patient was brought to the CT suite. All questions were answered. Informed consent was obtained . Timeout performed. The patient's left abdomen was prepped and draped in normal sterile fashion. Using CT guidance after adequate anesthesia with 3 mL of buffered Lidocaine, the left hepatic mass was accessed using a 17 g auge introducer. Using an 18 gauge Biopince needle, a total of two 22 mm 18 gauge cores were obtaine d. The patient tolerated the procedure well without complication. IMPRESSION: Technically successful CT guided liver mass biopsy. POS: [facility]
--- NOTE | 2017-12-10 13:09 | CON ---
DATE OF CONSULTATION: 12/10/2017 CONSULTING PHYSICIAN: Family Medicine Residency Service. REASON FOR CONSULTATION: Lung mass. HISTORY OF PRESENT ILLNESS: Ms. Mills is a 62-year-old female who has been seeing Dr. Tai in t office for workup of potential left lower lobe peripheral lung mass. She also has extensive media stinal lymphadenopathy and extensive liver metastasis. She did not get her PET scan as was ordered b juvenal Tai. She missed a referral appointment to Dr. Cam Garcia. She was admitted to the [facility] last night with pain. She was also hyponatremic. She underwent a percutaneous liver biopsy this lorenza and the pathology from that is pending. PAST MEDICAL HISTORY: 1. Hypertension. 2. Colon polyps. 3. Osteoarthritis. 4. Hyperlipidemia. 5. Hypertension. 6. Fibromyalgia. 7. Depression. 8. PTSD. PAST SURGICAL HISTORY: 1. Left knee arthroscopy: 2. Hysterectomy. 3. Colonoscopy. ALLERGIES: ASPIRIN. MEDICATIONS: Prior to admission, Spiriva, lovastatin, Lyrica, nabumetone, Flonase, Zoloft, ranitidin e, lisinopril, alendronate, bupropion, amitriptyline, tramadol. SOCIAL HISTORY: Has extensive smoking history, does not consume alcohol. Apparently does not use il licit drugs. REVIEW OF SYSTEMS: Cannot be obtained as the patient is basically uncooperative with the interview. PHYSICAL EXAMINATION: VITAL SIGNS: Temperature 97.9, pulse 92, respiration 16, O2 sat 94%, blood pressure 98/53. GENERAL: The patient appears chronically ill. HEENT: Pupils react. Sclerae icteric. Oropharynx dry. NECK: She has palpable lymphadenopathy in left supraclavicular area. LUNGS: Clear bilaterally. CARDIOVASCULAR: S1, S2 regular. ABDOMEN: Tender around the liver biopsy site. EXTREMITIES: No edema. LABORATORY DATA: White blood cell count 9.1, hematocrit 36.2, platelet count 274. INR 1.2. Sodium 127, potassium 4, chloride 94, CO2 of 21, BUN 16, creatinine 0.8, glucose 93. ASSESSMENT: The patient has cancer with metastasis to liver. Differential diagnosis would be lympho ma, lung cancer, and esophageal cancer. PLAN: Basic plan is pain control and followup of the pathology obtained from the liver biopsy today. I will inform Dr. Tai of the patient's hospitalization. Hyponatremia is being addressed by the residents.
[2017-12-10] MEDS: Atorvastatin Calcium 40 MG TAB PO SCH (21:30)
[2017-12-11] MEDS: Ipratropium Bromide 2.5 ml Neb NEB SCH ×5 (00:24→23:00)
[2017-12-11 04:57] LABS: Anion Gap 14 mmol/L (10-20); BUN (Urea Nitrogen) 18 mg/dL (9.8-20.1); Calc. Creatinine Clearance 77 mL/min (70-130); Calcium 8.6 mg/dL (7.8-10.44); Carbon Dioxide 24 mmol/L (23-31); Chloride 91 mmol/L (98-107); Estimated GFR-MDRD 71; Glucose 76 mg/dL (80-115); Potassium 4.1 mmol/L (3.5-5.1); Sodium 125 mmol/L (136-145)
[2017-12-11] MEDS: HYDROcodone/Acetaminophen 10/325 mg Tablet PO PRN (05:20)
--- NOTE | 2017-12-11 05:22 | PDOC.FM ---
- Subjective Subjective: Patient states her pain is improved today, but still rates it at 10/10. No other complaints today. - Objective Vital Signs & Weight: Vital Signs (12 hours) Pulse Resp Pulse Ox 12/11/17 00:28 94 L 12/11/17 00:24 88 18 94 L 12/10/17 19:02 90 18 95 Weight Admit Weight 68 kg Weight 68 kg I&O: 12/09/17 12/10/17 12/11/17 06:59 06:59 06:59 Intake Total 240 240 Balance 240 240 Result Diagrams: 12/09/17 13:12 12/11/17 04:22 <Francia Veronica - Last Filed: 12/11/17 08:43> - Objective Vital Signs & Weight: Vital Signs (12 hours) Temp Pulse Resp BP BP Pulse Ox 12/11/17 11:37 90 102/53 L 12/11/17 07:30 98.1 F 90 18 102/52 L 92 L 12/11/17 06:18 98 12/11/17 06:17 86 12 12/11/17 00:28 94 L 12/11/17 00:24 88 18 94 L Weight Admit Weight 68 kg Weight 68 kg I&O: 12/10/17 12/11/17 12/12/17 06:59 06:59 06:59 Intake Total 240 240 Balance 240 240 Result Diagrams: 12/09/17 13:12 12/11/17 04:22 <Al Valente - Last Filed: 12/11/17 11:42> Phys Exam - Physical Examination Constitutional: NAD HEENT: PERRLA, moist MMs Respiratory: no wheezing, no rales, no rhonchi, clear to auscultation bilateral Cardiovascular: RRR, no significant murmur Gastrointestinal: soft, no distention, positive bowel sounds +diffusely TTP Musculoskeletal: no edema, pulses present Psychiatric: normal affect <Francia Veronica - Last Filed: 12/11/17 08:43> Dx/Plan (1) SIADH (syndrome of inappropriate ADH production) Status: Acute (2) HTN (hypertension) Code(s): I10 - ESSENTIAL (PRIMARY) HYPERTENSION Status: Chronic (3) Lung cancer Code(s): C34.90 - MALIGNANT NEOPLASM OF UNSP PART OF UNSP BRONCHUS OR LUNG Status: Chronic (4) Colon polyps Code(s): K63.5 - POLYP OF COLON Status: Chronic (5) Tobacco abuse Code(s): Z72.0 - TOBACCO USE Status: Chronic (6) Osteoarthritis Code(s): M19.90 - UNSPECIFIED OSTEOARTHRITIS, UNSPECIFIED SITE Status: Chronic (7) Hyperlipidemia Code(s): E78.5 - HYPERLIPIDEMIA, UNSPECIFIED Status: Chronic (8) Fibromyalgia Status: Chronic (9) Depression Code(s): F32.9 - MAJOR DEPRESSIVE DISORDER, SINGLE EPISODE, UNSPECIFIED Status : Chronic (10) PTSD (post-traumatic stress disorder) Code(s): F43.10 - POST-TRAUMATIC STRESS DISORDER, UNSPECIFIED Status: Chronic (11) Hyponatremia Code(s): E87.1 - HYPO-OSMOLALITY AND HYPONATREMIA Status: Acute - Plan Plan: 62 yo F with suspected metastatic lung disease and hyponatremia 2/2 suspected SIADH. Suspected syndrome SIADH 2/2 metastatic lung cancer -Fluid restricted to 1200 ml fluid daily. Na 125 today. -TSH - wnl -Random cortisol level- 36.1 Suspected metastatic lung cancer - CXR showed- widening mediastinal lung mass - Chest/Abd/Pelv CT showed: Stable peripheral left lung mass, massive hilar and mediastinal adenopathy grossly table compared to prior exam. Stable bilateral axillary adenopathy. Scattered hypodensities throughout the liver appear to have progressed, likely represent metastatic disease. Diverticulosis. Stable sclerotic appearance of some of the vertebral bodies may represent degenerative change. Osseous metastasis cannot be entirely excluded. - IR on 12/10, CT guided liver mass biopsy -Awaiting path results from biopsy - Palliative consulted - Provide [place] for pain control, with morphine 2 mg q4h PRN for breakthrough pain. -AFP 9.2 -CEA -94.25 -CA125 - 180 -Ca 19-9 - 8 -Hem/Onc Dr. 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 Appreciate recs -MRI brain pending HTN -Home meds Hyponatremia -patient fluid restricted to 1200 ml daily, likely 2/2 to SIADH from lung cancer -Consider nephro consult or vaptan today as hyponatremia continues to worsen Depression -Home meds Tobacco abuse -PRN nicotine patch <Francia Veronica - Last Filed: 12/11/17 08:43> Attending Addendum - Attending Addendum Date/Time: 12/11/17 [id number] I personally evaluated the patient and discussed the management with Dr. Veronica. I agree with the History, Examination, Assessment and Plan documented above with any addition or exceptions noted below. Patient here for pain and metastatic process with unknown primary. Her MRI now shows brain mets as well. Palliative care on board to help determine goals of care and assist with comfort measures. Oncology further recs pending. Pulmonology on board. Awaiting primary diagnosis based on tissue biopsy obtained yesterday. She was somewhat worsening in her SIADH, but this likely will not resolve entirely due to her malignant process. Will increase fluid restriction at this time and continue to monitor. Increase TCA for improved pain control. <Al Valente - Last Filed: 12/11/17 11:42>
[2017-12-11] MEDS: Pregabalin 50 MG CAP PO SCH ×2 (11:26→23:18)
[2017-12-11] MEDS: Bupropion 150 MG XL TAB PO SCH (11:27)
[2017-12-11] MEDS: Nabumetone 500 MG TAB PO SCH (11:27)
[2017-12-11] MEDS: Famotidine 20 MG TAB PO SCH ×2 (11:27→23:20)
[2017-12-11] MEDS: Lisinopril 5 MG TAB PO SCH ×2 (11:30→11:37)
[2017-12-11] MEDS: Enoxaparin Sodium 40 MG/0.4 ML SYRINGE SC SCH (11:31)
--- NOTE | 2017-12-11 11:38 | MRI ---
MRI BRAIN WITH AND WITHOUT CONTRAST: HISTORY: Diffuse metastatic cancer. Altered mental status. Evaluate for brain metastases. COMPARISON: 06/02/2008 TECHNIQUE: A brain MRI is performed with and without intravenous Gadolinium administration. Multisequential, mu ltiplanar imaging is performed. FINDINGS: No hemorrhage on the axial gradient echo sequence. Note is made of a partially empty sella. Cortical hodge white matter differentiation is preserved. N o evidence of hydrocephalus. The central arterial flow voids are maintained. Absent restricted diffusion. The calvarium has a normal T1 marrow signal intensity. Midline brain parenchymal structures are unre markable. There is a cortically based enhancing focus in the right post central sulcus, measuring 8 mm. There is an additional enhancing focus in the right cerebellar hemisphere measuring 0.9 cm and an enhancing focus in the left cerebellar hemisphere measuring 0.7 cm. There is associated T2 and FLAIR hyperint ensity. The lesion in the right pre-central sulcus also has subtle associated restricted diffusion. IMPRESSION: Three separate enhancing foci in the brain, compatible with multifocal metastases. Lesions are less than 1 cm in size and are located in the right pre-central sulcus, left and right cerebellar hemisphe res. POS: [facility]
--- NOTE | 2017-12-11 15:48 | PRG ---
DATE OF SERVICE: 12/11/2017 SERVICE: Pulmonary Medicine. INTERVAL HISTORY: The patient is doing okay from a respiratory standpoint. She denies any current chest pain, nausea, vomiting, fevers, or chills. Otherwise, there has been no interval change to her condition. She is breathing comfortably. She underwent an MRI, which was abnormal. PHYSICAL EXAMINATION: VITAL SIGNS: Afebrile, pulse 90, blood pressure 102/52, respirations 18, saturation 92% on room air. GENERAL: The patient is awake, alert, in no apparent distress. LUNGS: Decent air entry. There is actually no prolonged expiratory phase or wheezing identified. HEART: Normal rate and regular. ABDOMEN: Soft, nontender, nondistended. Bowel sounds are positive. MUSCULOSKELETAL: No cyanosis or clubbing. There is no pitting in the bilateral lower extremities. NEUROLOGIC: Grossly nonfocal. LABORATORY DATA: Basic metabolic profile was essentially unremarkable except for a sodium that is downtrending to 125. IMAGING: MRI of the brain demonstrates 3 separate enhancing foci of the brain, compatible with multifocal metastases. They are bilateral. ASSESSMENT: 1. Widespread metastatic process, I suspect esophageal primary. 2. Hyponatremia, suspect SIADH. PLAN: We are awaiting the results of the biopsy of the liver. The preliminary results apparently are positive for a malignancy. As such, she has no further requirements for inpatient Pulmonary or Critical Care opinion, and I will sign off. Please call with additional questions or concerns moving forward or if any pulmonary procedures are required. [facility]PITALAsha
--- NOTE | 2017-12-11 19:57 | CON ---
DATE OF CONSULTATION: 12/11/2017 CONSULTING PHYSICIAN: Misty Campo M.D. REQUESTING PHYSICIAN: Mirza Tai M.D. REASON FOR CONSULTATION: Hyponatremia. IMPRESSION: Hyponatremia. This is likely multifactorial including hypovolemic hyponatremia; however , syndrome of inappropriate antidiuretic hormone secretion may be more likely given the history of th is patient. PLAN: 1. Urine chemistry to be able to identify what kind of hyponatremia this patient has and treat accor dingly. 2. Increase protein intake in the way of mashed meat. HISTORY OF PRESENT ILLNESS: History is that of a 62-year-old female patient with advanced metastatic cancer who presented here with rib pain status post fall. The patient over the course of this hospi talization has been noted with a sodium level in the 125-126 range. As a result of this, decision garcia s been taken to involve [facility] in the management of this case. PAST MEDICAL HISTORY: Significant for lung cancer, hypertension, osteoarthritis, dyslipidemia, hyper tension, fibromyalgia, depression, posttraumatic stress disorder. ALLERGIES: ASPIRIN. MEDICATIONS: Reviewed and as documented on [employer]. SOCIAL HISTORY: Significant for tobacco use. Denies alcohol or illicit drug use. REVIEW OF SYSTEMS: As documented in the body of the history. All other systems were reviewed and fo und not to be significantly related to the presenting illness. LABORATORY INVESTIGATION: Significant for sodium of 125. PHYSICAL EXAMINATION: GENERAL: The patient was found to be lethargic with dry oral mucosa, noted with the following vital signs. VITAL SIGNS: Afebrile with temperature 98.1, pulse 90, blood pressure 102/53, respiratory rate of 18 , O2 sat of 92%. HEENT: Remarkable for dry oral mucosa. NECK: Supple. CARDIOVASCULAR SYSTEM: First and second heart sounds were heard. RESPIRATORY SYSTEM: Clear to auscultation. DIGESTIVE SYSTEM: Revealed a benign abdomen. EXTREMITIES: No peripheral edema. SKIN: No new gross rash. LYMPHATICS: No peripheral lymphadenopathy. SUMMARY: A 62-year-old female patient with advanced metastatic malignancy, now with hyponatremia. Thank you for this consultation. We will follow with you.
[2017-12-11] MEDS ORDERED: Ipratropium Bromide 2.5 ml Neb ONE (22:55)
[2017-12-11] MEDS: Amitriptyline HCl 100 MG TAB PO SCH (23:18)
[2017-12-11] MEDS: Atorvastatin Calcium 40 MG TAB PO SCH (23:20)
--- NOTE | 2017-12-12 05:25 | PDOC.FM ---
- Subjective Subjective: Pt complains of increased pain. Denies nausea/vomiting. Says she did not sleep well last night. - Objective Vital Signs & Weight: Vital Signs (12 hours) Temp Pulse Resp BP Pulse Ox 12/11/17 23:00 92 12 12/11/17 19:15 97.9 F 91 20 104/52 L 90 L Weight Admit Weight 68 kg Weight 68 kg I&O: 12/10/17 12/11/17 12/12/17 06:59 06:59 06:59 Intake Total 240 240 Balance 240 240 Result Diagrams: 12/09/17 13:12 12/11/17 04:22 <Francia Veronica - Last Filed: 12/12/17 07:55> - Objective Vital Signs & Weight: Vital Signs (12 hours) Temp Pulse Resp BP Pulse Ox 12/12/17 09:32 92 12/12/17 07:46 99 F 92 20 113/59 L 90 L 12/12/17 07:02 92 12 12/11/17 23:00 92 12 Weight Admit Weight 68 kg Weight 68 kg I&O: 12/11/17 12/12/17 12/13/17 06:59 06:59 06:59 Intake Total 240 Balance 240 Result Diagrams: 12/09/17 13:12 12/12/17 08:27 <Al Valente - Last Filed: 12/12/17 10:30> Phys Exam - Physical Examination Constitutional: NAD (grimaces in pain) HEENT: PERRLA, moist MMs Neck: no nodes, no JVD Respiratory: no wheezing, no rales, no rhonchi, clear to auscultation bilateral Cardiovascular: RRR, no significant murmur Gastrointestinal: soft, no distention, positive bowel sounds +very TTP diffusely Musculoskeletal: no edema, pulses present Psychiatric: normal affect, A&O x 3 Skin: normal turgor, cap refill <2 seconds <Francia Veroniac - Last Filed: 12/12/17 07:55> Dx/Plan (1) SIADH (syndrome of inappropriate ADH production) Status: Acute (2) HTN (hypertension) Code(s): I10 - ESSENTIAL (PRIMARY) HYPERTENSION Status: Chronic (3) Lung cancer Code(s): C34.90 - MALIGNANT NEOPLASM OF UNSP PART OF UNSP BRONCHUS OR LUNG Status: Chronic (4) Colon polyps Code(s): K63.5 - POLYP OF COLON Status: Chronic (5) Tobacco abuse Code(s): Z72.0 - TOBACCO USE Status: Chronic (6) Osteoarthritis Code(s): M19.90 - UNSPECIFIED OSTEOARTHRITIS, UNSPECIFIED SITE Status: Chronic (7) Hyperlipidemia Code(s): E78.5 - HYPERLIPIDEMIA, UNSPECIFIED Status: Chronic (8) Fibromyalgia Status: Chronic (9) Depression Code(s): F32.9 - MAJOR DEPRESSIVE DISORDER, SINGLE EPISODE, UNSPECIFIED Status : Chronic (10) PTSD (post-traumatic stress disorder) Code(s): F43.10 - POST-TRAUMATIC STRESS DISORDER, UNSPECIFIED Status: Chronic (11) Hyponatremia Code(s): E87.1 - HYPO-OSMOLALITY AND HYPONATREMIA Status: Acute - Plan Plan: 62 yo F with suspected metastatic lung disease and hyponatremia 2/2 suspected SIADH. Hyponatremia Suspected syndrome SIADH 2/2 metastatic lung cancer -patient fluid restricted to 1000 ml daily, likely 2/2 to SIADH from lung cancer -Nephro consulted 12/11/17 (Dr. Jay) Suspected metastatic lung cancer - CXR showed- widening mediastinal lung mass - Chest/Abd/Pelv CT: peripheral L lung mass, hypodensities in liver, stable sclerotic appearance of vertebral bodies (degenerative change vs osseous mets) - IR on 12/10, CT guided liver mass biopsy, awaiting path results from biopsy - MRI Brain showed 3 separate enhancing foci of the brain, consistent with metastatic cancer - Palliative consulted - Provided [place] for pain control, with morphine 2 mg q4h PRN for breakthrough pain, will schedule norco today to provide better control - Hem/Onc Dr. 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 Appreciate recs Dermatitis -Benadryl -Nystatin powder HTN -Home meds Depression -Increased amitriptyline to 100mg 12/11/17 Tobacco abuse -PRN nicotine patch <Francia Veronica - Last Filed: 12/12/17 07:55> Attending Addendum - Attending Addendum Date/Time: 12/12/17 1028 I personally evaluated the patient and discussed the management with Dr. Veronica. I agree with the History, Examination, Assessment and Plan documented above with any addition or exceptions noted below. Patient here with likely metastatic lung cancer with mets to brain and liver. She also has SIADH that we are working on gaining control of. Her biggest complaint today is pain, and we will start some basal pain carcotic pain medication and increase as needed to get better control, but monitor closely to avoid over medicating. Palliative care on board. Placement of this patient will be difficult due to her limited resources. Chad desires to be FULL code at least until formal diagnosis made. <Al Valente R - Last Filed: 12/12/17 10:30>
[2017-12-12] MEDS: Ipratropium Bromide 2.5 ml Neb NEB SCH ×3 (07:02→18:36)
[2017-12-12] MEDS ORDERED: diphenhydrAMINE 25 MG CAP PO PRN (07:59)
[2017-12-12 09:00] LABS: Anion Gap 15 mmol/L (10-20); BUN (Urea Nitrogen) 15 mg/dL (9.8-20.1); Calc. Creatinine Clearance 98 mL/min (70-130); Calcium 8.6 mg/dL (7.8-10.44); Carbon Dioxide 22 mmol/L (23-31); Chloride 93 mmol/L (98-107); Estimated GFR-MDRD Greater than 90; Glucose 79 mg/dL (80-115); Potassium 4.1 mmol/L (3.5-5.1); Sodium 126 mmol/L (136-145)
[2017-12-12] MEDS: Pregabalin 50 MG CAP PO SCH ×2 (09:29→20:50)
[2017-12-12] MEDS: Bupropion 150 MG XL TAB PO SCH (09:30)
[2017-12-12] MEDS: Famotidine 20 MG TAB PO SCH ×2 (09:30→20:39)
[2017-12-12] MEDS: Nabumetone 500 MG TAB PO SCH (09:30)
[2017-12-12] MEDS: HYDROcodone/Acetaminophen 10/325 mg Tablet PO SCH ×3 (09:31→20:40)
[2017-12-12] MEDS: Enoxaparin Sodium 40 MG/0.4 ML SYRINGE SC SCH (09:31)
[2017-12-12] MEDS: Lisinopril 5 MG TAB PO SCH (09:32)
[2017-12-12] MEDS: Docusate 100 MG CAP PO SCH ×2 (10:22→20:39)
[2017-12-12] MEDS: Senokot S 8.6-50 MG TAB PO SCH ×2 (10:22→20:39)
[2017-12-12] MEDS: HYDROcodone/Acetaminophen 10/325 mg Tablet PO PRN ×2 (13:21→18:05)
[2017-12-12] MEDS: Amitriptyline HCl 100 MG TAB PO SCH (20:39)
[2017-12-12] MEDS: Atorvastatin Calcium 40 MG TAB PO SCH (20:39)
--- NOTE | 2017-12-13 01:17 | PRG ---
DATE OF SERVICE: 12/12/2017 SUBJECTIVE: The patient was seen and examined and noted with the following vital signs. PHYSICAL EXAMINATION: VITAL SIGNS: Afebrile with temperature 97.9, pulse 91, respiratory rate of 20, blood pressure 104/52 , O2 sat of 90%. HEENT: Unremarkable. CARDIOVASCULAR SYSTEM: First and second heart sounds were heard. RESPIRATORY SYSTEM: Clear to auscultation. DIGESTIVE SYSTEM: Revealed a benign abdomen. EXTREMITIES: No peripheral edema. SKIN: No new gross rash. LABORATORY INVESTIGATION: Significant for sodium is 126. IMPRESSION: Hyponatremia, query cause. Unfortunately, no urine chemistry has been collected to be a ble to identify what kind of hyponatremia . PLAN: We will continue current conservative measures to assess when urine chemistry becomes availabl e.
[2017-12-13] MEDS: Ipratropium Bromide 2.5 ml Neb NEB SCH ×4 (01:33→17:59)
[2017-12-13] MEDS: HYDROcodone/Acetaminophen 10/325 mg Tablet PO SCH ×5 (02:55→20:43)
--- NOTE | 2017-12-13 05:08 | PDOC.FM ---
- Subjective Subjective: Pt reports her pain is much better controlled today, nursing agreed. Patient stated she did not have BM yesterday. Feeling well this morning. - Objective Vital Signs & Weight: Vital Signs (12 hours) Temp Pulse Resp BP Pulse Ox 12/13/17 01:33 87 16 12/12/17 20:00 91 L 12/12/17 19:08 98.0 F 94 16 118/56 L 91 L 12/12/17 18:36 93 16 Weight Admit Weight 68 kg Weight 68 kg I&O: 12/11/17 12/12/17 12/13/17 06:59 06:59 06:59 Intake Total 240 Balance 240 Result Diagrams: 12/09/17 13:12 12/13/17 04:42 <Francia Veronica - Last Filed: 12/13/17 07:44> - Objective Vital Signs & Weight: Vital Signs (12 hours) Temp Pulse Resp BP Pulse Ox 12/13/17 09:18 94 12/13/17 06:17 94 20 91 L 12/13/17 05:56 98.3 F 94 16 117/60 91 L 12/13/17 01:33 87 16 Weight Admit Weight 68 kg Weight 68 kg I&O: 12/12/17 12/13/17 12/14/17 06:59 06:59 06:59 Intake Total 240 Balance 240 Result Diagrams: 12/09/17 13:12 12/13/17 04:42 <Al Valente - Last Filed: 12/13/17 10:15> Phys Exam - Physical Examination Constitutional: NAD HEENT: PERRLA, moist MMs Neck: no nodes, supple poor air movement, wheezing present Cardiovascular: RRR, no significant murmur Gastrointestinal: soft, non-tender, positive bowel sounds Musculoskeletal: no edema, pulses present Psychiatric: normal affect, A&O x 3 Skin: normal turgor, cap refill <2 seconds <Francia Veronica - Last Filed: 12/13/17 07:44> Dx/Plan (1) SIADH (syndrome of inappropriate ADH production) Status: Acute (2) HTN (hypertension) Code(s): I10 - ESSENTIAL (PRIMARY) HYPERTENSION Status: Chronic (3) Lung cancer Code(s): C34.90 - MALIGNANT NEOPLASM OF UNSP PART OF UNSP BRONCHUS OR LUNG Status: Chronic (4) Colon polyps Code(s): K63.5 - POLYP OF COLON Status: Chronic (5) Tobacco abuse Code(s): Z72.0 - TOBACCO USE Status: Chronic (6) Osteoarthritis Code(s): M19.90 - UNSPECIFIED OSTEOARTHRITIS, UNSPECIFIED SITE Status: Chronic (7) Hyperlipidemia Code(s): E78.5 - HYPERLIPIDEMIA, UNSPECIFIED Status: Chronic (8) Fibromyalgia Status: Chronic (9) Depression Code(s): F32.9 - MAJOR DEPRESSIVE DISORDER, SINGLE EPISODE, UNSPECIFIED Status : Chronic (10) PTSD (post-traumatic stress disorder) Code(s): F43.10 - POST-TRAUMATIC STRESS DISORDER, UNSPECIFIED Status: Chronic (11) Hyponatremia Code(s): E87.1 - HYPO-OSMOLALITY AND HYPONATREMIA Status: Acute - Plan Plan: 62 yo F with suspected metastatic lung disease and hyponatremia 2/2 suspected SIADH. Hyponatremia Suspected syndrome SIADH 2/2 metastatic lung cancer -patient fluid restricted to 1000 ml daily, likely 2/2 to SIADH from lung cancer -Nephro consulted 12/11/17 (Dr. Jay) -Straight cath today to collect urine studies -Na improved today to 128 Suspected metastatic lung cancer - CXR showed- widening mediastinal lung mass - Chest/Abd/Pelv CT: peripheral L lung mass, hypodensities in liver, stable sclerotic appearance of vertebral bodies (degenerative change vs osseous mets) - IR on 12/10, CT guided liver mass biopsy, awaiting path results from biopsy - MRI Brain showed 3 separate enhancing foci of the brain, consistent with metastatic cancer - Palliative consulted - CHRISTIANO [place] for pain control, with norco and morphine 2 mg q4h PRN for breakthrough pain. - Bowel regimen: continue sennacot and colace - Increased amitriptyline to 100mg 12/11/17 for further pain control - Hem/Onc Dr. 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 Appreciate recs - Awaiting liver biopsy pathology results Dermatitis -Benadryl -Nystatin powder HTN -Home meds Depression -Continue buproprion and wellbutrin Tobacco abuse -PRN nicotine patch <Francia Veronica - Last Filed: 12/13/17 07:44> Attending Addendum - Attending Addendum Date/Time: 12/13/17 1014 I personally evaluated the patient and discussed the management with Dr. Veronica. I agree with the History, Examination, Assessment and Plan documented above with any addition or exceptions noted below. Patient with improved pain control and denies complaints this morning. Awaiting urine studies, but serium sodium levels improved with increased fluid restriction. Awaiting tissue diagnosis and further Onc recs and outpatient dispo planning. <Al Valente - Last Filed: 12/13/17 10:15>
[2017-12-13 05:21] LABS: Anion Gap 15 mmol/L (10-20); BUN (Urea Nitrogen) 14 mg/dL (9.8-20.1); Calc. Creatinine Clearance 98 mL/min (70-130); Calcium 8.5 mg/dL (7.8-10.44); Carbon Dioxide 22 mmol/L (23-31); Chloride 95 mmol/L (98-107); Estimated GFR-MDRD Greater than 90; Glucose 91 mg/dL (80-115); Potassium 4.1 mmol/L (3.5-5.1); Sodium 128 mmol/L (136-145)
[2017-12-13] MEDS: Bupropion 150 MG XL TAB PO SCH (09:12)
[2017-12-13] MEDS: Nabumetone 500 MG TAB PO SCH (09:14)
[2017-12-13] MEDS: Docusate 100 MG CAP PO SCH ×3 (09:14→21:00)
[2017-12-13] MEDS: Pregabalin 50 MG CAP PO SCH ×3 (09:14→20:45)
[2017-12-13] MEDS: Senokot S 8.6-50 MG TAB PO SCH ×3 (09:15→21:00)
[2017-12-13] MEDS: Famotidine 20 MG TAB PO SCH ×3 (09:15→21:00)
[2017-12-13] MEDS: Lisinopril 5 MG TAB PO SCH (09:18)
[2017-12-13] MEDS: Enoxaparin Sodium 40 MG/0.4 ML SYRINGE SC SCH (09:19)
[2017-12-13 14:36] LABS: Potassium, Urine 23.8 mmol/L
[2017-12-13 15:59] LABS: Bilirubin Negative (Negative); Blood, Urine Moderate (Negative); Clarity TURBID (Clear); Glucose, Urine (Dipstick) Negative (Negative); Leukocyte Large (Negative); Nitrite Positive (Negative); Protein, Urine (Dipstick) 30 mg/dL (Neg-Trace); Specific Gravity, Urine 1.013 (1.002-1.036); Urobilinogen 0.2 mg/dL (0.2-1.0)
[2017-12-13 16:00] LABS: Bacteria/HPF 4+ HPF (None Seen); Hyaline Casts/LPF 0-3 HYALINE CAST LPF (0-3 Hyaline); Squamous Epithelial None Seen HPF (0-3)
[2017-12-13 16:02] LABS: Yeast-AUWi Flag 735.8 (0-25.0)
[2017-12-13 16:10] LABS: RBC/HPF 0-3 HPF (0-3); Yeast-All Forms None Seen HPF (None Seen)
[2017-12-13] MEDS: Amitriptyline HCl 100 MG TAB PO SCH ×2 (20:47→21:00)
[2017-12-13] MEDS: Atorvastatin Calcium 40 MG TAB PO SCH (20:47)
[2017-12-13] MEDS: Cipro 250 MG TAB PO SCH (20:47)
--- NOTE | 2017-12-13 21:19 | PRG ---
DATE OF SERVICE: 12/13/2017 The patient was seen and examined, noted with the following vital signs. PHYSICAL EXAMINATION: VITAL SIGNS: Afebrile with temperature 98.3, pulse 94, respiratory rate of 20, blood pressure 117/60 , O2 sat 91%. HEENT: Unremarkable. CARDIOVASCULAR: First and heart sounds were heard. RESPIRATORY: Clear to auscultation. DIGESTIVE: Revealed a benign abdomen with positive bowel sounds. EXTREMITIES: No peripheral edema. SKIN: No new gross rash. LYMPHATICS: No peripheral lymphadenopathy. LABORATORY: Sodium that has gone up 128. IMPRESSION: 1. Hyponatremia in the context of syndrome of inappropriate antidiuretic hormone given the urine cristian roscoe. 2. Lung cancer. PLAN: 1. The patient to benefit from free water restriction. 2. Increase protein intake in the way of animal meat. 3. Further management to be dependent on the clinical course.
[2017-12-14] MEDS: Ipratropium Bromide 2.5 ml Neb NEB SCH ×4 (00:05→20:23)
[2017-12-14] MEDS: HYDROcodone/Acetaminophen 10/325 mg Tablet PO SCH ×4 (02:00→20:30)
--- NOTE | 2017-12-14 05:17 | PDOC.FM ---
- Subjective Subjective: Pt states she is not doing well this morning. Pt had coughing episode last night and was unable to take her PO medication crushed in pudding. Coughing increased her side pain. IV pain meds were restarted because she was unable to swallow. In/out cath revealed >1L of urine, and +UA. - Objective Vital Signs & Weight: Vital Signs (12 hours) Temp Pulse Resp BP Pulse Ox 12/14/17 04:30 98 F 94 18 113/55 L 94 L 12/14/17 00:07 93 L 12/14/17 00:05 91 16 93 L 12/13/17 23:20 97.5 F L 96 20 101/53 L 94 L 12/13/17 20:00 92 L 12/13/17 19:05 97.9 F 93 16 118/57 L 94 L 12/13/17 17:59 90 14 Weight Admit Weight 68 kg Weight 68 kg I&O: 12/12/17 12/13/17 12/14/17 06:59 06:59 06:59 Intake Total 240 720 Balance 240 720 Result Diagrams: 12/09/17 13:12 12/14/17 04:37 Phys Exam - Physical Examination Constitutional: NAD HEENT: PERRLA, moist MMs Neck: no nodes, supple mild wheezing Cardiovascular: RRR, no significant murmur pulses 2+ bilat in upper and lower extremities Gastrointestinal: soft, no distention slightly TTP, improved Musculoskeletal: no edema, pulses present Psychiatric: normal affect, A&O x 3 Dx/Plan (1) SIADH (syndrome of inappropriate ADH production) Status: Acute (2) HTN (hypertension) Code(s): I10 - ESSENTIAL (PRIMARY) HYPERTENSION Status: Chronic (3) Lung cancer Code(s): C34.90 - MALIGNANT NEOPLASM OF UNSP PART OF UNSP BRONCHUS OR LUNG Status: Chronic (4) Colon polyps Code(s): K63.5 - POLYP OF COLON Status: Chronic (5) Tobacco abuse Code(s): Z72.0 - TOBACCO USE Status: Chronic (6) Osteoarthritis Code(s): M19.90 - UNSPECIFIED OSTEOARTHRITIS, UNSPECIFIED SITE Status: Chronic (7) Hyperlipidemia Code(s): E78.5 - HYPERLIPIDEMIA, UNSPECIFIED Status: Chronic (8) Fibromyalgia Status: Chronic (9) Depression Code(s): F32.9 - MAJOR DEPRESSIVE DISORDER, SINGLE EPISODE, UNSPECIFIED Status : Chronic (10) PTSD (post-traumatic stress disorder) Code(s): F43.10 - POST-TRAUMATIC STRESS DISORDER, UNSPECIFIED Status: Chronic (11) Hyponatremia Code(s): E87.1 - HYPO-OSMOLALITY AND HYPONATREMIA Status: Acute - Plan Plan: 62 yo F with suspected metastatic lung disease and hyponatremia 2/2 suspected SIADH. Suspected metastatic lung cancer - CXR showed- widening mediastinal lung mass - Chest/Abd/Pelv CT: peripheral L lung mass, hypodensities in liver, stable sclerotic appearance of vertebral bodies (degenerative change vs osseous mets) - IR on 12/10, CT guided liver mass biopsy, awaiting path results from biopsy - MRI Brain showed 3 separate enhancing foci of the brain, consistent with metastatic cancer - Palliative consulted - CHRISTIANO [place] for pain control, with norco and morphine 2 mg q4h PRN for breakthrough pain. -IV pain meds this morning until ST clears - Bowel regimen: continue sennacot and colace - Increased amitriptyline to 100mg 12/11/17 for further pain control - Hem/Onc Dr. 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 Appreciate recs - Awaiting liver biopsy pathology results - PRN duoneb Hyponatremia Suspected syndrome SIADH 2/2 metastatic lung cancer -patient fluid restricted to 1000 ml daily, likely 2/2 to SIADH from lung cancer -Nephro consulted 12/11/17 (Dr. Jay) - UA +, started cipro 12/14/17 -Na improved today to 128 -PT/OT consult today Dysphagia -IV antibiotics/pain medicine this AM -Speech consult, NPO until speech clears Urinary retention -In/out cath yesterday revealed>1L fluids -Cath now Urge incontinence -Pt gives hx of urge incontinence Dermatitis -Benadryl -Nystatin powder HTN -Home meds Depression -Continue buproprion and wellbutrin Tobacco abuse -PRN nicotine patch
[2017-12-14] MEDS: Cipro 250 MG TAB PO SCH ×2 (05:38→20:30)
[2017-12-14] MEDS: Atorvastatin Calcium 40 MG TAB PO SCH ×2 (05:41→22:42)
[2017-12-14 05:54] LABS: Anion Gap 16 mmol/L (10-20); BUN (Urea Nitrogen) 6 mg/dL (9.8-20.1); Calc. Creatinine Clearance 92 mL/min (70-130); Calcium 8.7 mg/dL (7.8-10.44); Carbon Dioxide 25 mmol/L (23-31); Chloride 93 mmol/L (98-107); Estimated GFR-MDRD 86; Glucose 88 mg/dL (80-115); Potassium 4.1 mmol/L (3.5-5.1); Sodium 130 mmol/L (136-145)
[2017-12-14] MEDS: Nabumetone 500 MG TAB PO SCH (09:19)
[2017-12-14] MEDS: Bupropion 150 MG XL TAB PO SCH (09:20)
[2017-12-14] MEDS: Famotidine 20 MG TAB PO SCH ×2 (09:20→22:35)
[2017-12-14] MEDS: Lisinopril 5 MG TAB PO SCH (09:20)
[2017-12-14] MEDS: Docusate 100 MG CAP PO SCH ×2 (09:20→22:35)
[2017-12-14] MEDS: Senokot S 8.6-50 MG TAB PO SCH ×2 (09:20→22:34)
[2017-12-14] MEDS: Pregabalin 50 MG CAP PO SCH (09:20)
[2017-12-14] MEDS: Enoxaparin Sodium 40 MG/0.4 ML SYRINGE SC SCH (09:21)
--- NOTE | 2017-12-14 13:01 | ADD-PRG ---
DATE OF SERVICE: 12/14/2017 This is an addendum to the note of Dr. Francia Veronica. Ms. Mills is resting quietly in bed. She passed her swallow test and is asking for something to ea t. We are still awaiting path report on her widely metastatic disease. After that time, she will be further treated as an outpatient as Oncology and Nephrology are on board with the patient. Her SIAD H is improving with fluid restriction and her sodium has risen from 125 to 130.
--- NOTE | 2017-12-14 13:31 | PQF ---
CLINICAL DOCUMENTATION IMPROVEMENT CLARIFICATION FORM: ICD-10 Updated PLEASE DO AN ADDENDUM TO THE PROGRESS NOTE WITH ANY DOCUMENTATION UPDATES OR ADDITIONS AND CARRY THROUGH TO DC SUMMARY. THANK YOU. DATE: 12/14/17; 12/15/17; 12/16/17 ATTN: Dr. Veronica/ Attending Dr. Cunningham Please exercise your independent, professional judgment in responding to the clarification form. Clinical indicators are provided on the bottom of this form for your review Please check appropriate box(s): I (concur) with the Wound Care findings as stated below. [ x ] Pressure Ulcer: [ ] Location: Rt buttock POA: [ x ] Yes [ ] No [ ] Unable to determine Stage (I to IV): _2___(Left___Right_x__Bilateral____N/A___) [ ] No pressure ulcer diagnosis [ ] Other diagnosis [ ] Unable to determine In addition, please specify: Present on Admission (POA): [x ] Yes [ ] No [ ] Unable to determine For continuity of documentation, please document condition throughout progress notes and discharge summary. Thank You. CLINICAL INDICATORS - SIGNS / SYMPTOMS / LABS WOUND CARE ASSESSMENT 12/12: R BUTTOCK PRESSURE ULCER STAGE II RISKS: H&P 12/09: SUSPECTED SYNDROME OF INAPPROPRIATE ANTIDIURETIC HORMONE SECRETION D/T METASTATIC LUNG CANCER. HTN. TREATMENT: ORDER 12/09: WOUND CARE EVAL / TREAT STAGE II TO R BUTTOCK WC DC SUMMARY 12/12: KEEP MAYELIN AREA CLEAN & DRY. REPOSITION PT EVERY 2 HRS & PRN. APPLY COMPOSITE DRESSING TO [place] BUTTOCKS PRN Pre-ulcer skin changes limited to persistent focal edema (Stage 1) Abrasion, blister, partial thickness skin loss involving epidermis and/or dermis (Stage 2) Full thickness skin loss involving damage or necrosis of SQ tissue. (Stage 3) Necrosis of soft tissue through to underlying muscle, tendon, or bone. (Stage 4) Purple or maroon discolored skin or blood filled blister Thank you, aRshmi (This form is maintained as a part of the permanent medical record) [employer] Sales Representative Health Insurance [employer] 2015 [employer]. All Rights Reserved Rashmi Garcia RN, BSN [email or web address] Office: [phone] [facility]
--- NOTE | 2017-12-14 18:47 | CON ---
DATE OF CONSULTATION: 12/14/2017 REASON FOR CONSULTATION: Ms. 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 HISTORY OF PRESENT ILLNESS: Ms. Mills for the past 2-3 months in her words has been "declining." She has had weight loss and increase in shortness of breath. She reports she has had a chronic nonpr oductive cough since pneumonia last April. She apparently had a CT angiogram in October that sugge sted a lung mass and adenopathy in the mediastinum, but has not followed up on that. She reports mul tiple falls in the past and recently she fell and broke some ribs and was subsequently admitted to [facility] for workup and evaluation. Presently, her pain is primarily in her ribs, although some in her back. The back pain she reports is chronic. She denies any headaches or nausea or vomiting. S he has no weakness or numbness. For the past 2 months, she reports she has been walking less and les s. She does report an 880 pound weight loss in the past 6 months. On admission, did have a CT of [facility] chest, abdomen, and pelvis. This showed a slightly less than 3 cm pleural based mass in the left l ower lobe of the lung as well as extensive left hilar and mediastinal adenopathy. There is bilateral axillary adenopathy. There was extensive metastatic disease in the liver. She underwent a CT-guide d biopsy of the liver which reportedly showed the diagnosis of small cell carcinoma of the lung. Vivienne campbell is per personal communication. Biopsy report is not yet officially available. MRI of the brain wa s performed and showed 3 small enhancing areas consistent with metastasis. All are subcentimeter. Asha Fajardo has seen the patient in Medical Oncology and plans to start her on chemotherapy. I have bee n asked to see her to discuss whether she needs any radiation for her brain metastasis. PAST MEDICAL HISTORY: 1. Hypertension. 2. History of pneumonia. 3. Osteoarthritis. 4. Hypercholesterolemia. 5. Fibromyalgia. 6. Posttraumatic stress disorder. 7. Left knee arthroscopic surgery. 8. Hysterectomy. 9. Colonoscopy in the past. 10. History of herniated/bulging disk in the back that have not been operated on. MEDICATIONS: Spiriva inhaler, lovastatin, Lyrica, nabumetone, Flonase, Zoloft, ranitidine, lisinopri l, alendronate, bupropion, amitriptyline, and tramadol. ALLERGIES: The patient reports she is allergic to ASPIRIN. SOCIAL HISTORY: She previously smoked, but has not smoked for at least 1.5 years. She did smoke up to one-half pack per day. She has no alcohol use at the present. She was living by herself in a [facility] home here in town. She does have a friend who visits with her often. She apparently has transpo rtation difficulties and on admission was having difficulty taking care of herself. FAMILY HISTORY: Negative for lung cancer. Her mother at age 45 from myocardial infarction/asth ma. Her father of ALS at age 63. PHYSICAL EXAMINATION: VITAL SIGNS: Height 5 feet 4 inches, weight 149 pounds, blood pressure is 101/56, pulse is 85, respi rations 16, temperature 98.8, O2 saturation is 94% on 2 liters O2. GENERAL: She is alert and oriented and in no apparent distress. Performance status is quite poor. Karnofsky performance status is 30%. HEENT: Pupils equal, round, react to light. Extraocular movements are intact. ENT: Oral cavity an d oropharynx normal without lesion or erythema. Palate elevates symmetrically. Gingiva is intact. NECK: Supple, without cervical or clavicular adenopathy. No thyromegaly. Larynx is midline. LUNGS: Coarse breath sounds bilaterally. The patient is not able to sit up to hear breath sounds po steriorly. HEART: Regular rate and rhythm without murmur. EXTREMITIES: No lower extremity edema. LYMPHATIC: Bilateral or axillary adenopathy. There is no inguinal adenopathy. ABDOMEN: Bowel sounds present. Soft, nontender, nondistended. Her liver is enlarged and palpable. SKIN: Without rash or purpura. NEUROLOGIC: Cranial nerves II-XII grossly intact. Motor strength is 5/5 in both upper and lower ext remities in all muscle groups tested. Reflexes are diminished, but symmetrical. The patient is not able to get out of bed. LABORATORY AND X-RAY FINDINGS: Pathology reportedly showed a small cell carcinoma. We will await final report. CBC revealed a white this count 9100 with hemoglobin 11.7 and hematocrit of 36.2. P latelet count 274,000. Chemistry group shows sodium of 130. On admission, her sodium was 126. Crea tinine is 0.69. RADIOLOGIC: CT scan of the chest, abdomen, and pelvis were personally reviewed. Again, she has a sl ightly less than 3 cm pleural based left lower lobe lung mass. She has fairly bulky mediastinal kavon opathy which is both ipsilateral and contralateral and is decreased or is narrowing the michael and tr achea. She has a left hilar adenopathy. She has bilateral axillary adenopathy. Her liver shows ext ensive metastasis in the liver. MRI of the brain showed 3 subcentimeter lesions in the brain with mi nimal vasogenic edema. ASSESSMENT: Ms. 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 She has extensive bulky mediastinal adenopathy and extensive disease in the liver. PLAN: I think Ms. Mills's declining performance status is related to her lung cancer and primarily related to her bulky disease in her chest and in her liver. I think her lesions in the brain are as ymptomatic at the present time. Dr. Fajardo has seen her and plans are to initiate chemotherapy fairly soon. I think according to NCCN guidelines since her lesions in the brain are small, limited in num jessie, and asymptomatic that we can just follow these for the time being while she is on chemotherapy. There is a reasonable chance that they will respond to the chemotherapy also. I would not recommend initiating radiation therapy at the present because she is going to be on chemotherapy. I did discu ss with her that even if the disease in her brain goes away completely with chemotherapy that she dmitry l still require radiation therapy at some point in the future. The logistics of radiation as well as the benefits and risks of treatment were discussed. Side effects would include but not be limited t o skin reaction, fatigue, lower blood counts, hair loss which may be permanent, headache, nausea, vom iting, and risk of damage to her normal brain which might affect memory or mentation. Time was taken to answer all of her questions regarding her treatment options at the present time. She will initia te chemotherapy and proceed with chemotherapy under the direction of Dr. Fajardo. Her brain will need to be monitored during the chemotherapy with periodic restaging MRIs of the brain. We will plan to s ee her at some point as an outpatient and I will coordinate this with Dr. Fajardo's therapy. Thank you for asking me to see this interesting consultation.
[2017-12-14] MEDS: Amitriptyline HCl 100 MG TAB PO SCH (22:35)
[2017-12-14] MEDS: Morphine ER 15 MG TAB PO SCH (22:37)
[2017-12-15] MEDS: Ipratropium Bromide 2.5 ml Neb NEB SCH ×4 (01:09→18:58)
[2017-12-15] MEDS: HYDROcodone/Acetaminophen 10/325 mg Tablet PO SCH ×4 (02:33→22:07)
[2017-12-15] MEDS: Pregabalin 50 MG CAP PO SCH ×3 (05:36→22:54)
[2017-12-15 05:39] LABS: #Eosinphils 0.2 thou/uL (0.0-0.7); #Lymphocytes 0.8 thou/uL (1.20-3.40); #Neutrophils 6.6 thou/uL (1.40-6.50); %Basophils 0.5 % (0.0-1.0); %Eosinophils 1.9 % (0.0-10.0); %Lymphocytes 9.2 % (21.0-51.0); %Monocytes 11.8 % (0.0-10.0); %Neutrophils 76.7 % (42.0-75.0); Hemoglobin 8.9 g/dL (12.0-16.0); Mean Corpuscular HGB CONC 31.9 g/dL (32.0-36.0); Mean Corpuscular Hemoglobin 28.5 pg (27.0-31.0); Mean Corpuscular Volume 89.3 fL (78.0-98.0); Mean Platelet Volume 7.2 fL (7.4-10.4); Platelet Count 285 thou/uL (130-400); RBC Distribution Width 14.3 % (11.5-14.5); Red Blood Cell (RBC) Count 3.13 mill/uL (4.20-5.40); White Blood Cell (WBC) Count 8.6 thou/uL (4.8-10.8)
[2017-12-15] MEDS: Morphine ER 15 MG TAB PO SCH ×3 (05:51→22:12)
--- NOTE | 2017-12-15 05:54 | PDOC.FM ---
- Subjective Subjective: Pain reported as 10/10 this morning in her side. Has some SOB this morning. States that she wants to try to live as long as possible. - Objective Vital Signs & Weight: Vital Signs (12 hours) Temp Pulse Resp BP Pulse Ox 12/15/17 01:09 87 18 93 L 12/14/17 20:23 90 18 95 12/14/17 19:05 99.1 F 87 20 108/57 L 94 L Weight Admit Weight 68 kg Weight 73.9 kg I&O: 12/13/17 12/14/17 12/15/17 06:59 06:59 06:59 Intake Total 240 720 580 Balance 240 720 580 Result Diagrams: 12/15/17 05:16 12/15/17 05:16 Phys Exam - Physical Examination Constitutional: NAD HEENT: PERRLA, moist MMs Neck: no nodes, supple Respiratory: no wheezing, clear to auscultation bilateral Cardiovascular: RRR 2/6 systolic murmur Gastrointestinal: soft, positive bowel sounds TTP diffusely Musculoskeletal: no edema, pulses present Psychiatric: normal affect, A&O x 3 Skin: normal turgor, cap refill <2 seconds Dx/Plan (1) SIADH (syndrome of inappropriate ADH production) Status: Acute (2) HTN (hypertension) Code(s): I10 - ESSENTIAL (PRIMARY) HYPERTENSION Status: Chronic (3) Lung cancer Code(s): C34.90 - MALIGNANT NEOPLASM OF UNSP PART OF UNSP BRONCHUS OR LUNG Status: Chronic (4) Colon polyps Code(s): K63.5 - POLYP OF COLON Status: Chronic (5) Tobacco abuse Code(s): Z72.0 - TOBACCO USE Status: Chronic (6) Osteoarthritis Code(s): M19.90 - UNSPECIFIED OSTEOARTHRITIS, UNSPECIFIED SITE Status: Chronic (7) Hyperlipidemia Code(s): E78.5 - HYPERLIPIDEMIA, UNSPECIFIED Status: Chronic (8) Fibromyalgia Status: Chronic (9) Depression Code(s): F32.9 - MAJOR DEPRESSIVE DISORDER, SINGLE EPISODE, UNSPECIFIED Status : Chronic (10) PTSD (post-traumatic stress disorder) Code(s): F43.10 - POST-TRAUMATIC STRESS DISORDER, UNSPECIFIED Status: Chronic (11) Hyponatremia Code(s): E87.1 - HYPO-OSMOLALITY AND HYPONATREMIA Status: Acute - Plan Plan: 62 yo F with suspected metastatic lung disease and hyponatremia 2/2 suspected SIADH. Suspected metastatic lung cancer - CXR: widening mediastinal lung mass - Chest/Abd/Pelv CT: peripheral L lung mass, hypodensities in liver, stable sclerotic appearance of vertebral bodies (degenerative change vs osseous mets) - IR on 12/10, CT guided liver mass biopsy, awaiting path results from biopsy. - Pending liver biopsy pathology results - MRI Brain: 3 separate enhancing foci of the brain, consistent with metastatic cancer - CHRISTIANO MS Contin q8 for pain - Bowel regimen: continue sennacot and colace - Hem/Onc Dr. Fajardo: Likely small cell carcinoma, patient will likely need chemo. Appreciate recs - Rad Onc Dr. Larry Rodriguez: Dhemo with periodic restaging with MRI of brain, radiation later on in her course. - Palliative consulted - PRN duoneb for SOB - PT/OT consulted - ST cleared for PO food and medication Hyponatremia Suspected syndrome SIADH 2/2 metastatic lung cancer -patient fluid restricted to 1000 ml daily, likely 2/2 to SIADH from lung cancer -Nephro consulted 12/11/17 (Dr. Jay) -Na improved today to 130 Urinary Tract Infection - UA +, started ciprofloxacin 12/14/17 Dysphagia -Speech consulted, cleared for PO food and medication Urinary retention -In/out cath revealed >1L urine retention -Adarsh scan, In/out cath NOW and qshift Urge incontinence -Pt gives hx of urge incontinence Dermatitis -Benadryl -Nystatin powder HTN -Home meds Depression -Continue buproprion and wellbutrin Tobacco abuse -PRN nicotine patch
[2017-12-15] MEDS: Cipro 250 MG TAB PO SCH (05:55)
[2017-12-15 06:03] LABS: Anion Gap 15 mmol/L (10-20); BUN (Urea Nitrogen) 12 mg/dL (9.8-20.1); Calc. Creatinine Clearance 113 mL/min (70-130); Calcium 8.8 mg/dL (7.8-10.44); Carbon Dioxide 25 mmol/L (23-31); Chloride 94 mmol/L (98-107); Estimated GFR-MDRD Greater than 90; Glucose 85 mg/dL (80-115); Potassium 3.7 mmol/L (3.5-5.1); Sodium 130 mmol/L (136-145)
[2017-12-15] MEDS: Famotidine 20 MG TAB PO SCH ×2 (08:25→22:19)
[2017-12-15] MEDS ORDERED: Calcium Carbonate 500 MG ChewTAB PO PRN ×2 (09:12→09:13)
[2017-12-15] MEDS ORDERED: Famotidine 20 MG TAB PO SCH (09:15)
[2017-12-15] MEDS: Lisinopril 5 MG TAB PO SCH (09:44)
[2017-12-15] MEDS: cefTRIAXone\\ROCEPHIN 1 GM in Sodium Chloride 0.9% 100 ML IVPB SCH (10:24)
[2017-12-15] MEDS: Enoxaparin Sodium 40 MG/0.4 ML SYRINGE SC SCH (10:44)
[2017-12-15] MEDS: Bisacodyl 5 MG TAB PO SCH (11:04)
[2017-12-15] MEDS: Nabumetone 500 MG TAB PO SCH (11:10)
[2017-12-15] MEDS: Docusate 100 MG CAP PO SCH ×2 (11:10→22:19)
[2017-12-15] MEDS: Bupropion 150 MG XL TAB PO SCH (11:10)
[2017-12-15] MEDS: Senokot S 8.6-50 MG TAB PO SCH ×2 (11:11→23:02)
[2017-12-15] MEDS ORDERED: Dexamethasone 20 MG in Sodium Chloride 0.9% 50 ML IVPB SCH (12:00)
[2017-12-15] MEDS ORDERED: ETOPOSIDE IVPB SCH ×2 (12:00→12:15)
[2017-12-15] MEDS ORDERED: CARBOplatin 650 MG in Sodium Chloride 0.9% 250 ML 250 ML IVPB SCH (12:00)
[2017-12-15] MEDS ORDERED: SODIUM CHLORIDE 0.9% IVPB SCH ×2 (12:00→12:15)
[2017-12-15] MEDS ORDERED: PALONOSETRON HCL 0.05 MG/ML 5 ML VIAL IVP SCH (12:00)
--- NOTE | 2017-12-15 12:07 | PRG ---
DATE OF SERVICE: 12/15/2017 This is an addendum to the note of Dr. Francia Veronica. Pathology revealed small cell carcinoma, widely metastatic. The patient is to begin chemotherapy tod ay. She is also requesting IV pain medication, but we are trying to transition her to p.o. in antici pation of hospital discharge. She has not had a bowel movement in several days and we have initiated therapy for this.
[2017-12-15] MEDS: Magnesium Citrate 300 ML BOT PO SCH ×3 (13:00→22:53)
--- NOTE | 2017-12-15 19:32 | PRG ---
DATE OF SERVICE: 12/15/2017 SUBJECTIVE: The patient was noted with the following vital signs. PHYSICAL EXAMINATION: VITAL SIGNS: Afebrile with temperature 98.1, pulse 98, respiratory rate of 16, O2 sat of 91%-93%, bl ood pressure 140/55. HEENT: Unremarkable. CARDIOVASCULAR SYSTEM: First and second heart sounds were heard. RESPIRATORY SYSTEM: Clear to auscultation. DIGESTIVE SYSTEM: Revealed a benign abdomen. EXTREMITIES: No peripheral edema. SKIN: No new gross rash. LYMPHATICS: No peripheral lymphadenopathy. LABORATORY INVESTIGATION: Showed a sodium of 130. IMPRESSION: Hyponatremia in the context of syndrome of inappropriate antidiuretic hormone secretion, seems to be stable at 130. PLAN: We will continue with current conservative measures.
[2017-12-15] MEDS: Amitriptyline HCl 100 MG TAB PO SCH (22:09)
[2017-12-15] MEDS: Atorvastatin Calcium 40 MG TAB PO SCH (22:19)
[2017-12-16] MEDS: Morphine IR Tab 15 MG TAB PO PRN ×3 (00:03→09:31)
[2017-12-16] MEDS: Ipratropium Bromide 2.5 ml Neb NEB SCH ×3 (00:13→14:08)
[2017-12-16] MEDS ORDERED: Morphine 4 MG/ML VIAL SLOW IVP SCH (01:02)
[2017-12-16] MEDS: HYDROcodone/Acetaminophen 10/325 mg Tablet PO SCH ×3 (05:21→15:29)
--- NOTE | 2017-12-16 05:53 | PDOC.FM ---
- Subjective Subjective: Patient reports pain is 7/10 this morning on rt and left lower midaxillary ribs. She has been refusing her oral medications, including her norco, antibiotic, and bowel regimen. Pt denies nausea or vomiting this morning. Pt has had minimal PO intake of foods for past few days per nursing. Pt received first treatment of chemo yesterday. she states she is worried about where she is going to go after leaving the hospital and how she is going to get chemo. - Objective Vital Signs & Weight: Vital Signs (12 hours) Temp Pulse Resp BP Pulse Ox 12/15/17 20:00 94 L 12/15/17 19:01 98.1 F 98 16 114/55 L 91 L 12/15/17 18:58 97 18 93 L Weight Admit Weight 68 kg Weight 73.9 kg I&O: 12/14/17 12/15/17 12/16/17 06:59 06:59 06:59 Intake Total 1173 283 7625 Output Total 900 Balance 1120 580 360 Result Diagrams: 12/16/17 05:35 12/16/17 05:35 Phys Exam - Physical Examination Constitutional: NAD HEENT: PERRLA, moist MMs Neck: no nodes, supple Respiratory: no wheezing, no rales, no rhonchi, clear to auscultation bilateral Cardiovascular: RRR, no significant murmur Gastrointestinal: soft, positive bowel sounds diffusely TTP Musculoskeletal: no edema, pulses present Psychiatric: A&O x 3 Deviation from normal: Tearful when telling me about placement issues, appears anxious Skin: normal turgor, cap refill <2 seconds Dx/Plan (1) SIADH (syndrome of inappropriate ADH production) Status: Acute (2) HTN (hypertension) Code(s): I10 - ESSENTIAL (PRIMARY) HYPERTENSION Status: Chronic (3) Lung cancer Code(s): C34.90 - MALIGNANT NEOPLASM OF UNSP PART OF UNSP BRONCHUS OR LUNG Status: Chronic (4) Colon polyps Code(s): K63.5 - POLYP OF COLON Status: Chronic (5) Tobacco abuse Code(s): Z72.0 - TOBACCO USE Status: Chronic (6) Osteoarthritis Code(s): M19.90 - UNSPECIFIED OSTEOARTHRITIS, UNSPECIFIED SITE Status: Chronic (7) Hyperlipidemia Code(s): E78.5 - HYPERLIPIDEMIA, UNSPECIFIED Status: Chronic (8) Fibromyalgia Status: Chronic (9) Depression Code(s): F32.9 - MAJOR DEPRESSIVE DISORDER, SINGLE EPISODE, UNSPECIFIED Status : Chronic (10) PTSD (post-traumatic stress disorder) Code(s): F43.10 - POST-TRAUMATIC STRESS DISORDER, UNSPECIFIED Status: Chronic (11) Hyponatremia Code(s): E87.1 - HYPO-OSMOLALITY AND HYPONATREMIA Status: Acute - Plan Plan: 62 yo F with metastatic neuroendocrine carcinoma and hyponatremia 2/2 suspected SIADH. Metastatic neuroendocrine carcinoma (small cell carcinoma) - CXR: widening mediastinal lung mass - Chest/Abd/Pelv CT: peripheral L lung mass, hypodensities in liver, stable sclerotic appearance of vertebral bodies (degenerative change vs osseous mets) - IR on 12/10, CT guided liver mass biopsy, path showed neuroendocrine carcinoma - MRI Brain: 3 separate enhancing foci of the brain - Pain control: CHRISTIANO 30 mg MS Contin q12 for pain, 15 mg morphine IR for break through pain - Bowel regimen: patient has been refusing sennacot and colace and mag citrate. Consider enema today - Hem/Onc Dr. Fajardo, Appreciate recs - Rad Onc Dr. Larry Rodriguez: Chemo with periodic restaging with MRI of brain, radiation later on in her course. - Palliative consulted - PRN duoneb for SOB - PT/OT consulted - ST cleared for PO food and medication - Case management consulted for placement Hyponatremia Suspected syndrome SIADH 2/2 metastatic lung cancer -patient fluid restricted to 1000 ml daily, likely 2/2 to SIADH from lung cancer -Nephro consulted 12/11/17 (Dr. Jay) -Na improved today to 131 Urinary Tract Infection - UA +, started ciprofloxacin 12/14/17, switched to IV ceftriaxone 12/15 - Micro shows Citrobacter koteri, sensitive to cipro and ceftriaxone Dysphagia -Speech consulted, cleared for PO food and medication Urinary retention -In/out cath revealed >1L urine retention; yesterday cath revealed 900 ml -Bladder scan, In/out cath qshift Urge incontinence -Pt gives hx of urge incontinence Dermatitis -Benadryl -Nystatin powder HTN -Home meds Depression -Continue buproprion and wellbutrin Tobacco abuse -PRN nicotine patch
[2017-12-16 06:07] LABS: Anion Gap 15 mmol/L (10-20); BUN (Urea Nitrogen) 17 mg/dL (9.8-20.1); Calc. Creatinine Clearance 111 mL/min (70-130); Calcium 9.1 mg/dL (7.8-10.44); Carbon Dioxide 26 mmol/L (23-31); Chloride 95 mmol/L (98-107); Estimated GFR-MDRD Greater than 90; Glucose 113 mg/dL (80-115); Potassium 4.5 mmol/L (3.5-5.1); Sodium 131 mmol/L (136-145)
[2017-12-16 06:20] LABS: #Eosinphils 0.1 thou/uL (0.0-0.7); #Lymphocytes 0.5 thou/uL (1.20-3.40); #Monocytes 0.6 thou/uL (0.11-0.59); #Neutrophils 8.5 thou/uL (1.40-6.50); %Lymphocytes 4.8 % (21.0-51.0); %Monocytes 6.3 % (0.0-10.0); %Neutrophils 87.8 % (42.0-75.0); Hemoglobin 9.9 g/dL (12.0-16.0); Mean Corpuscular HGB CONC 30.9 g/dL (32.0-36.0); Mean Corpuscular Hemoglobin 27.6 pg (27.0-31.0); Mean Corpuscular Volume 89.1 fL (78.0-98.0); Mean Platelet Volume 7.3 fL (7.4-10.4); Platelet Count 319 thou/uL (130-400); RBC Distribution Width 14.5 % (11.5-14.5); Red Blood Cell (RBC) Count 3.58 mill/uL (4.20-5.40); White Blood Cell (WBC) Count 9.6 thou/uL (4.8-10.8)
[2017-12-16] MEDS: Morphine ER 15 MG TAB PO SCH (06:30)
[2017-12-16 07:41] VITALS: BP 133/67; TEMP 98.2
[2017-12-16] MEDS ORDERED: Morphine ER 15 MG TAB PO SCH ×2 (09:00→21:00)
[2017-12-16] MEDS: Senokot S 8.6-50 MG TAB PO SCH (09:42)
[2017-12-16] MEDS: Bisacodyl 5 MG TAB PO SCH (09:43)
[2017-12-16] MEDS: Bupropion 150 MG XL TAB PO SCH (09:49)
[2017-12-16] MEDS: Lisinopril 5 MG TAB PO SCH (09:50)
[2017-12-16] MEDS: Famotidine 20 MG TAB PO SCH (09:50)
[2017-12-16] MEDS: Nabumetone 500 MG TAB PO SCH (09:51)
[2017-12-16] MEDS: Magnesium Citrate 300 ML BOT PO SCH (09:51)
[2017-12-16] MEDS: Pregabalin 50 MG CAP PO SCH (09:51)
[2017-12-16] MEDS: Docusate 100 MG CAP PO SCH (09:53)
[2017-12-16] MEDS: Enoxaparin Sodium 40 MG/0.4 ML SYRINGE SC SCH (09:55)
[2017-12-16] MEDS: cefTRIAXone\\ROCEPHIN 1 GM in Sodium Chloride 0.9% 100 ML IVPB SCH (10:00)
--- NOTE | 2017-12-16 10:55 | PQF ---
CLINICAL DOCUMENTATION IMPROVEMENT CLARIFICATION FORM: ICD-10 Updated PLEASE DO AN ADDENDUM TO THE PROGRESS NOTE WITH ANY DOCUMENTATION UPDATES OR ADDITIONS AND CARRY THROUGH TO DC SUMMARY. THANK YOU. Date: 12/16/17 ATTN: Dr. Veronica/ Attending Dr. Cunningham Please exercise your independent, professional judgment in responding to the clarification form. Clinical indicators are provided on the bottom of this form for your review Please check appropriate box(s): [ ] Protein Calorie Malnutrition: [ ] Mild [ ] Moderate [ ] Severe [ ] Other Malnutrition [ ] Cachexia [ x ] Other diagnosis ____stage 4 small cell lung carcinoma [ ] Unable to determine In addition, please specify: Present on Admission (POA): [ x ] Yes [ ] No [ ] Unable to determine CLINICAL INDICATORS - SIGNS / SYMPTOMS / LABS H&P: CACHETIC APPEARING, IN MODERATE TO SEVERE PAIN CONSULT 12/14: SHE HAS HAD WT LOSS & INCREASE IN SHORTNESS OF BREATH. THE PT IS NOT ABLE TO GET OUT OF BED. POST SPLITTER ASSESSMENT 12/10: 2+ PITTING EDEMA TO BLE POST SPLITTER ASSESSMENT 12/14: BMI 25.7 8% AVG OF LAST 6 MEALS PN 12/16: PT HAS HAD MINIMAL PO INTAKE OF FOODS FOR PAST FEW DAYS PER NURSING. RISKS: H&P: CURRENTLY LIVING AT HOME, BUT IS HAVING DIFFICULTY PERFORMING ADLS & IADLS. PN 12/14: HYPONATREMIA SUSPECTED SYNDROME SIADH 2/2 METASTATIC LUNG CANCER. DYSPHAGIA. URINARY RETENTION. ATTENDING PN 12/15: PATHOLOGY REVEALED SMALL CELL CARCINOMA , WIDELY METASTATIC. TREATMENT: POST SPLITTER ASSESSMENT TRIGGERED FOR WOUND CARE CONSULT. CPOE 12/10: SUPPLEMENT: ENSURE ENLIVE BID Moderate Malnutrition (in acute illness) Energy Intake: <75% of estimated energy requirement for > 7 days Weight Loss: 1-2%/1 week; 5%/ 1 month; 7.5%/3 months Other: mild body fat loss; mild muscle mass loss; mild fluid accumulation; Severe Malnutrition (in acute illness) Energy Intake: < 50% of estimated energy requirement for > 5 days Weight Loss: >1-2%/1 week; >5%/1 month; >7.5%/3 months Other: moderate body fat loss; moderate muscle mass loss; moderate- severe fluid accumulation; measurably reduced clipping marker strength Moderate Malnutrition (in chronic illness) Energy Intake: <75% of estimated energy requirement for >1 month Weight Loss: 5%/1 month; 7.5%/3 months; 10%/6 months; 20%/1 year Other: mild body fat loss; mild muscle mass loss; mild fluid accumulation Severe Malnutrition (in chronic illness) Energy Intake: <75% of estimated energy requirement for >1 month Weight Loss: >5%/1 month; >7.5%/3 months; >10%/6 months; >20%/1 year Other: severe body fat loss; severe muscle mass loss; severe fluid accumulation; measurably reduced clipping marker strength Thank you, Rashmi (This form is maintained as a part of the permanent medical record) 2015 [employer] All Rights Reserved Rashmi Garcia RN, BSN [email or web address] Office: [phone] [facility] HOSPITALAsha
[2017-12-16] MEDS ORDERED: fentaNYL 50 mcg/hour Patch TD SCH (11:00)
[2017-12-16] MEDS: Morphine 4 MG/ML VIAL SLOW IVP PRN ×2 (11:27→15:27)
--- NOTE | 2017-12-17 03:34 | DIS-2 ---
DATE OF ADMISSION: 12/09/2017 DATE OF DISCHARGE: 12/16/2017 RESIDENT: Dr. Francia Veronica. ADMITTING ATTENDING: Al Valente MD DISCHARGE ATTENDING: Dr. Cunningham. CONSULTS: 1. Oncology, Dr. Jose Carlos Fajardo consulted on 12/09/2017. 2. Pulmonology, Dr. Cortés and Dr. Tai consulted on 12/10/2017. 3. Interventional Radiology consulted on 12/10/2017. 4. Rad/Oncology, Dr. Rodriguez consulted on 12/14/2017. 5. Dr. Misty Campo consulted for nephrology on 12/11/2017. PROCEDURES: 1. On 12/09/2017, chest x-ray, impression: Widening of the mediastinum with mass-like density in the left hilar and suprahilar locations, likely related to extensive masses or lymphadenopathy seen in the mediastinum and left hilar region, recent CTA chest on 11/21/2017. Remote anterior left-sided rib fractures. No acute cardiopulmonary process. 2. On 12/09/2017, chest, abdomen, and pelvis CT, impression: Stable peripheral left lung mass. Mass of hilar and mediastinal adenopathy is grossly stable compared to the prior examination. Stable bilateral axillary adenopathy. Scattered hypodensities throughout the liver appeared to have progressed and likely represent metastatic disease. 3. Diverticulosis. Stable sclerotic appearance to some of the vertebral bodies may represent degenerative change. Osseous metastasis cannot be entirely excluded. 4. On 12/10/2017, biopsy CT, impression technically successful CT-guided liver mass biopsy. 5. On 12/10/2017, pathology surgical specimen liver biopsy, impression: Poorly differentiated neuroendocrine carcinoma (small cell carcinoma) involving liver. 6. On 12/11/2017, brain MRI, impression: Three separate enhancing foci in the brain compatible with multifocal metastasis. Lesions are less than 1 cm in size and located in the right precentral sulcus, left and right cerebellar hemispheres. PRIMARY DIAGNOSES: Metastatic neuroendocrine carcinoma (small cell carcinoma). SECONDARY DIAGNOSES: 1. Hyponatremia, suspected syndrome, syndrome of inappropriate antidiuretic hormone secretion secondary to metastatic lung cancer. 2. Urinary tract infection. 3. Dysphagia. 4. Urinary retention. 5. Urge incontinence. 6. Dermatitis. 7. Hypertension. 8. Depression. 9. Tobacco abuse. DISCHARGE MEDICATIONS: 1. Acetaminophen 650 mg oral q.4 hours p.r.n. 2. Acetaminophen Tylenol suppository 650 mg rectal q.4 hours p.r.n. 3. Amitriptyline 100 mg oral at bedtime. 4. Atorvastatin calcium 40 mg oral at bedtime. 5. Bisacodyl 10 mg oral daily. 6. Bisacodyl 10 mg rectal q.24 hours p.r.n. for constipation. 7. Calcium carbonate 1000 mg oral q.4 hours p.r.n. for peeqjpjd-ev-dnlamg heartburn. 8. Diphenhydramine 25 mg oral q.6 hours p.r.n. for itching or insomnia. 9. Colace 100 mg p.o. b.i.d. 10. Famotidine 20 mg oral b.i.d. 11. Fentanyl 50 mcg transdermally every 3 days. 12. Hydrocodone 1 tab oral q.6 hours. 13. Ipratropium nebulizer q.6 hours. 14. Ipratropium, albuterol nebulizer q.4 hours p.r.n. for shortness of breath and/or wheezing. 15. Lidocaine 5% patch 1 patch transdermally daily. 16. Lidocaine patch removal one each topical 2100. 17. Lisinopril 5 mg oral daily. 18. Nabumetone 750 mg oral daily. 19. Nicotine patch 14 mg transdermally q.24 hours p.r.n. for withdrawal from nicotine. 20. Nystatin 1 gram topical twice daily p.r.n. as needed for topical irritation. 21. Ondansetron 4 mg oral q.6 hours p.r.n. for nausea, vomiting. 22. Pregabalin 200 mg oral b.i.d. 23. Sennosides docusate sodium 1 tab oral twice daily. 24. Sertraline 200 mg p.o. daily. 25. Tiotropium 18 mcg inhalation daily. 26. Lovastatin 40 mg oral every evening with supper. 27. Guaifenesin dextromethorphan 1 tablet oral b.i.d. 28. Hydrocortisone 1 application topically 3 times daily p.r.n. for itching. 29. Fluticasone proprionate 1 spray each naris twice daily. 30. Ranitidine 150 mg oral b.i.d. 31. Bupropion 150 mg oral daily. 32. Tramadol 50 mg oral t.i.d. DISCONTINUED MEDICATIONS: Alendronate 70 mg every 7 days. HISTORY OF PRESENT ILLNESS/HOSPITAL COURSE: Ms. Mills is a pleasant 62-year- old female with past medical history of carotid artery stenosis, hypertension, osteoarthritis, and a recently diagnosed lung cancer. She presents to the ER via EMS with chief complaint of left-sided rib pain, back pain, arm pain, and abdominal pain. She states that she was walking home yesterday and fell from standing, landing on her left side. She states she required assistance from EMS to stand back up and that her pain has been significantly worse throughout the past 24 hours. States that she has had more and more difficulty caring herself for the last 2-3 months. When asked regarding the lung cancer, she states that she is aware that she has a lung mass , but has been unable to follow up with Oncology due to financial restriction. While enroute the EMS, she received fentanyl 200 mcg have been very tired and minimally responsive per nursing report. Her history and review of systems were limited by this. In the ER, the patient was seen and evaluated by CATHLEEN Chiang. Routine labs were drawn and chest x-ray was obtained. She was given a normal saline bolus of 500 mL. Her chest x-ray showed widening of mediastinum lung mass. CT abdomen and pelvis and chest showed a peripheral lung mass with hypodensities in the liver and Interventional Radiology on [address] guided liver mass biopsy that showed neuroendocrine carcinoma. MRI of her brain showed three separate enhancing foci of the brain. She was put on pain control and bowel regimen. Dr. Fajardo was consulted from Heme/Oncology. Rad/Oncology, Dr. Larry Rodriguez was also consulted and recommended chemo as periodic restaging via MRI of brain with radiation later on her course. Palliative was consulted. She was started on DuoNeb. She received PT, OT, and physical therapy. Speech therapy saw her and cleared her for p.o. food and medication and case management was consulted for placement. She was initially a FULL CODE and wanted everything to be done, so chemotherapy was started on 12/15/2017. Patient decided the next day that she did not want to pursue chemo. She had been refusing her oral pain medicines as well as lot of her other medications. Patient decided to opt to go the hospice route. Her medical power of attorney lawyer agreed. 2. Hyponatremia secondary to suspected syndrome of inappropriate antidiuretic hormone secretion secondary to her metastatic lung cancer. Patient received a fluid restriction 2000 mL daily. Her sodium improved up to 131 over the course of her stay. Dr. Jay was consulted to help manage her hyponatremia. 3. Her UA was positive for UTI. She was started on clindamycin until sensitivities resulted and this switched to oral ciprofloxacin. After her refusal of her antibiotic p.o. medications, she was switched back to IV ceftriaxone on 12/15/2017. She received one more day of antibiotics to complete a 5-day regimen of antibiotics for urinary tract infection. Microbiology showed Citrobacter koseri, which was sensitive to both CIPRO and CEFTRIAXONE. 4. Dysphagia: the patient choked on some fluids and so Speech was consulted and she was cleared for p.o. food and medication. 5. Now catheterization reveals greater than 1 liter of urine retention, so she was intermittently catheterized to relieve her urine retention. 6. Dermatitis: Benadryl and Nystatin were ordered. 7. Home medications were continued for hypertension. 8. Depression, she was continued on bupropion and Wellbutrin. 9. She was offered a nicotine patch, because she is a current everyday smoker. DISPOSITION: Stable. DISCHARGE INSTRUCTIONS: 1. Location: Hospice. 2. Activity: As tolerated. 3. Nourishment: Heart-healthy diet. 4. Equipment or supplies: Small care, nebulizer treatments, oxygen. 5. Follow up: No need for followup, just continue with hospice unless other concerns arise and follow up with her PCP. LARRY
--- NOTE | 2017-12-17 07:44 | ADD-PRG ---
ADDENDUM DATE OF SERVICE: 12/16/2017 Please add to note of Dr. Francia Veronica. Mr. Mills is resting quietly. We held a discussion about her pain control. We have stated we are trying to transition her to p.o. pain meds in anticipation of discharge and will be glad to give her IV pain meds if she would try the p.o. first. She seems to understand this issue. She has, however, also has asked for hospice care and this will be arranged.
[2017-12-17] MEDS ORDERED: Lidocaine 5% Patch TD SCH (09:00)
[2017-12-17] MEDS ORDERED: Lidocaine Patch Removal 1 EACH TOP SCH (21:00)
== END 2017-12-16 15:49 | disposition short-term general hospital (02) | DRG 180 ==
LOC: ERS 12:45 → ONC 14:17 → OBSVTOIN 14:17
PROVIDERS: ADMIT Student in an Organized Health Care Education/Training Program; ATTEND Student in an Organized Health Care Education/Training Program
DX: C34.90 Malignant neoplasm of unspecified part of unspecified bronchus or lung (principal); G93.6 Cerebral edema; E22.2 Syndrome of inappropriate secretion of antidiuretic hormone; C78.7 Secondary malignant neoplasm of liver and intrahepatic bile duct; N39.0 Urinary tract infection, site not specified; C79.31 Secondary malignant neoplasm of brain; R33.9 Retention of urine, unspecified; M19.90 Unspecified osteoarthritis, unspecified site; I10 Essential (primary) hypertension; E87.5 Hyperkalemia; M79.7 Fibromyalgia; F32.9 Major depressive disorder, single episode, unspecified; F43.10 Post-traumatic stress disorder, unspecified; Z88.6 Allergy status to analgesic agent; Z79.899 Other long term (current) drug therapy; Z79.51 Long term (current) use of inhaled steroids; Z91.81 History of falling; L30.9 Dermatitis, unspecified; R13.10 Dysphagia, unspecified; F17.210 Nicotine dependence, cigarettes, uncomplicated; K63.5 Polyp of colon; L89.312 Pressure ulcer of right buttock, stage 2
CPT/HCPCS: 36415; 47000; 70553; 71045; 71260; 74177; 77012; 80048; 80053; 81003; 81015; 82105; 82378; 82436; 82533; 82553; 83605; 83615; 83935; 84133; 84300; 84443; 84484; 85025; 86301; 86304; 87077; 87086; 87186; 88307; 88341; 88342; 88360; 93005; 96374; A4216; A4353; G8978-GP-CM; G8978-GP-CN; G8979-GP-CK; G8987-GO-CM; G8988-GO-CJ; G8996-GN-CJ; G8997-GN-CJ; J0696; J0744; J1100; J1650; J2250; J2270; J2405; J2469; J3010; J7050; J7620; J7644; J9045; J9181